=== PATIENT | male | born 1950 | race Caucasian/White ===

== ENCOUNTER 2023-11-30 12:03 | Emergency (ER) | payer OTHER, SELFPAY ==
[2023-11-30 12:13] VITALS: BP 145/79
[2023-11-30 13:08] VITALS: BP 142/92
--- NOTE | 2023-11-30 13:13 | ED.GENMED ---
History of Present Illness
General
Chief Complaint: Breathing Problem
Time Seen by Provider: 11/30/23 12:56
Travel History
Have you had any contact with someone who has COVID-19?: No
Do you have any symptoms of coronavirus? Fever > 100 degrees, chills, cough, shortness of breath, sore throat, loss of taste or smell, muscle aches, or headache?: No
History of Present Illness
History of Present Illness:
73-year-old male presents emergency department for evaluation of gradually worsening dyspnea on exertion over the past several months. He states symptoms been ongoing for at least 6 months but in the past 3 weeks have been worsening. He denies any
associated exertional chest pain. He has had a relatively recently complicated course with multiple revisions of a right knee replacement due to a periprosthetic fracture, currently going through rehab. Denies any leg swelling or shortness of
breath at rest. No orthopnea. No weight gain. 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
Review of Systems
Review of Systems
Allergies reviewed?: Yes
All Other Systems: ROS reviewed and negative except as documented in HPI and ROS
Phy Exam
Physical Exam
Physical Exam:
GEN: Well appearing, NAD, WDWN
Eyes: PERRLA, EOMs intact, no scleral icterus
HENT: NCAT, oral mucosa moist, no JVD
Lungs: CTAB, no wheezes, rales, rhonchi, normal chest wall excursion
Cardiac: RRR, no M/R/G, no peripheral edema. Radial pulses 2+ bilat
Abdomen: S, NT, ND, NABS, no masses or hepatosplenomegaly
Neuro: AO x 3
MSK: No gross deformity or ecchymosis. No edema. No digital clubbing
Skin: No rashes, petechiae. Normal color, no pallor or jaundice.
Psych: Calm, cooperative, proper hygiene
Scores
Heart Failure Risk
Heart Failure Risk Score: Not Applicable
Course
Orders/Labs/Results
Orders:
Orders
11/30/23 12:18
Electrocardiogram (*1) Urgent
Reason for Study: Shortness of Breath
EKG- Treatment ONCE
11/30/23 13:29
Complete Blood Count/With Diff Urgent
Comprehensive Metabolic Panel Urgent
D-Dimer Urgent
NT-proBNP Urgent
Troponin I Urgent
11/30/23 14:13
CT Chest Pe Study Urgent
Comment:
Reason For Exam: HARDEN, elevated D Dimer
Abnormal Lab Results
11/30/23
13:29
RBC 4.13 L 10^6/uL
(4.70-6.10)
Hct 38.9 L %
(39.0-52.0)
MCV 94.2 H fL
(80.0-94.0)
MCH 31.5 H pg
(27.0-31.0)
MPV 10.9 H fL
(7.4-10.4)
Abs Immat Gran (auto) 0.1 H 10^3/uL
(0-0.05)
Absolute Lymphs (auto) 1.0 L 10^3/uL
(1.2-3.4)
Absolute Monos (auto) 0.7 H 10^3/uL
(0.1-0.6)
Immature Gran % 1.1 H %
(0-0.5)
Lymphocytes % 12.2 L %
(20.5-51.1)
D-Dimer 1.64 H ug/mlFEU
(0.00-0.50)
BUN 22 H mg/dl
(9-20)
Glucose 113 H mg/dl
(70-99)
Alkaline Phosphatase 151 H U/L
(38-126)
11/30/23 13:29
11/30/23 13:29
Vital Signs
Initial and Last Documented VS:
Initial Vital Signs
Temp Pulse Resp BP Pulse Ox
98.4 F 103 18 145/79 95
11/30/23 12:13 11/30/23 12:13 11/30/23 12:13 11/30/23 12:13 11/30/23 12:13
Last Documented Vital Signs
Temp Pulse Resp BP Pulse Ox
98.4 F 86 23 140/67 94
11/30/23 12:13 11/30/23 14:30 11/30/23 14:30 11/30/23 14:00 11/30/23 14:30
MDM/Problems Addressed
MDM/Problems Addressed:
Given the patient's tachycardia, clear lungs, and lack of lab abnormalities to explain his dyspnea on exertion we opted to obtain a CT scan of the chest to rule out PE. Fortunately there is no evidence for pulmonary embolism. Some vague evidence
of bilateral lower lobe pneumonitis, patient does not have a clinical presentation consistent with acute pneumonia warranting antibiotics thus will discharge to outpatient PCP and pulmonology follow-up
Comment
Comment:
EKG independently interpreted by me shows a sinus tachycardia rate of [address] changes concerning for ischemia
*Critical Care Note
Total Time (30-74mins, 75-104mins- exclusive of procedures): Not Applicable
ED Attending Note
-
Portions of this chart may have been created with voice recognition software.� Occasional wrong word or��sound alike� substitutions may have occurred due to the inherent limitations of voice recognition software.
Discharge Plan
Departure
Patient Disposition: Home (Routine Discharge)
Date of Disposition: 11/30/23
Time of Disposition: 15:58
Patient with high blood pressure during this ER visit?: No
Discharge Problem:
Dyspnea on exertion, Pneumonitis
Instructions: Shortness of Breath (Dyspnea) (DC)
Referrals:
Maria Alejandra Balderas MD [Active] -
Jefferson Malave MD [Family Provider] -
Interventions
Interventions:
*Risk Screen - Suicide Last Done: 11/30/23 12:13
*General Assessment Last Done: 11/30/23 12:13
*Neglect/Abuse Screening Last Done: 11/30/23 12:13
ED- Fall Risk Assessment Last Done: 11/30/23 16:54
*ED COVID-19 Vaccine History Last Done: 11/30/23 12:13
*Nursing Disposition Last Done: 11/30/23 16:54
ED- Cardiac Assessment Last Done: 11/30/23 14:00
ED- Pulmonary Assessment Last Done: 11/30/23 14:00
Discharge Date and Time
Discharge Date/Time: 11/30/23 16:30
[2023-11-30 13:30] VITALS: BP 144/65
[2023-11-30 13:44] LABS: % Basophils 0.9 % (0-2); % Eosinophils 2.5 % (0-6); % Immature Granulocytes 1.1 % (0-0.5); % Lymphocytes 12.2 % (20.5-51.1); % Monocytes 8.8 % (1.7-9.3); % Neutrophils 74.5 % (42.2-75.2); Absolute Basophils 0.1 10^3/uL (0-0.2); Absolute Eosinophils 0.2 10^3/uL (0-0.7); Absolute Immature Granulocytes 0.1 10^3/uL (0-0.05); Absolute Monocytes 0.7 10^3/uL (0.1-0.6); Absolute Neutrophils 5.9 10^3/uL (1.4-6.5); Hematocrit 38.9 % (39.0-52.0); Mean Corp Hgb Conc. 33.4 g/dL (33.0-37.0); Mean Corpuscular Hgb 31.5 pg (27.0-31.0); Mean Corpuscular Volume 94.2 fL (80.0-94.0); Mean Platelet Volume 10.9 fL (7.4-10.4); Nucleated Red Blood Cells % 0 % (-); Platelet Count 169 10^3/uL (130-400); Red Blood Cell Count 4.13 10^6/uL (4.70-6.10); Red Cell Dist. Width 13.7 % (11.5-14.5); White Blood Cell Count 7.9 10^3/uL (4.8-10.8)
[2023-11-30 13:55] LABS: D-Dimer 1.64 ug/mlFEU (0.00-0.50)
[2023-11-30 13:57] LABS: ALT (SGPT) 25 U/L (0-50); AST (SGOT) 26 U/L (17-59); Albumin 4.1 g/dl (3.5-5.0); Alkaline Phosphatase 151 U/L (38-126); Blood Urea Nitrogen 22 mg/dl (9-20); Calcium 9.3 mg/dl (8.4-10.2); Carbon Dioxide 25 mmol/L (22-30); Chloride 104 mmol/L (98-107); Glucose 113 mg/dl (70-99); Potassium 4.1 mmol/L (3.5-5.1); Sodium 139 mmol/L (135-145); Total Bilirubin 0.5 mg/dl (0.2-1.3); Total Protein 7.2 g/dl (6.3-8.2); eGFR 57.29
[2023-11-30 14:00] VITALS: BP 140/67
[2023-11-30 14:07] LABS: NT-proBNP 30.9 pg/ml; Troponin I < 0.012 ng/ml
== END 2023-11-30 16:30 | disposition home or self-care (01) ==
LOC: EMR 12:03
PROVIDERS: Physician Assistant; EMERGENCY PHYSICIAN Emergency Medicine; FAMILY PHYSICIAN Family Medicine
DX: R06.09 Other forms of dyspnea (principal); J18.9 Pneumonia, unspecified organism; Z96.651 Presence of right artificial knee joint
CPT/HCPCS: 99285; 71275; 80053; 83880; 84484; 85025; 85379; 93005; Q9967

== ENCOUNTER → 2024-02-10 12:19 | Outpatient (REF) | payer OTHER, SELFPAY | LOC: DHCBC/DCA 12:19 | PROVIDERS: ATTENDING PHYSICIAN Internal Medicine Cardiovascular Disease; FAMILY PHYSICIAN Family Medicine | DX: R06.02 Shortness of breath (principal) | CPT/HCPCS: 78452; 93017; A9500; J2785 ==

== ENCOUNTER 2024-02-15 10:38 | Day surgery (SDC) | payer OTHER, SELFPAY ==
[2024-02-15] VITALS (14 sets, daily range): BP systolic 124–158; BP diastolic 58–91; BMI 42.4
[2024-02-15] MEDS: NSS 390 ML IV (10:45)
[2024-02-15] MEDS: NSS 1000 IV (11:35)
--- NOTE | 2024-02-15 11:48 | ITS.CL.CATH ---
Rn Dialysis - Catheterization
Cardiac Catheterization
Procedure Report:
CARDIAC CATHETERIZATION REPORT
Date of Procedure: 02/15/2024
Referring: King Whitney M.D.
INDICATION: Shortness of breath/dyspnea on exertion, abnormal stress test.
PROCEDURE:
1. Left heart catheterization.
2. Coronary angiography.
ACCESS:
6 Chinese right radial artery.
CATHETERS:
1. 5 Chinese JR4.
2. 5 Chinese JL 3.5.
HEMODYNAMIC DATA
Weight (kg): 129.7
AO (s/d/x, mmHg): 139/78/106
LV (s/x mmHg): 139/12
LEFT VENTRICULOGRAPHY: Not performed.
CORONARY ANGIOGRAPHY
Dominance: Right.
Left Main: Normal size, trifurcating vessel. There is no coronary artery disease.
LAD: Normal size vessel giving rise to 1 significant diagonal. There are minor luminal irregularities.
Ramus: Small vessel, supplying the basal anterolateral wall. There is no coronary artery disease.
Circumflex: Normal size, nondominant vessel giving rise to a single large obtuse marginal. The OM subsequently divides into 3 smaller daughter branches. There is no coronary artery disease.
RCA: Large size, dominant vessel. There is a 20% lesion in the proximal vessel. There is a long, smooth 30% lesion in the mid/distal vessel at the crux.
INTERVENTION(S)
None.
Closure Device: Vascular band.
Radiation (mGy): 387.81
DAP (cm2.Gy): 33.4980
Fluoroscopy time (minutes): 1.7
Sedation time (minutes): 18
CONCLUSIONS
1. Right dominant circulation with minor luminal irregularities in the LAD, a 20% lesion in the proximal RCA and a long, smooth, 30% lesion in the mid/distal RCA at the crux.
2. Normal filling pressures (LVEDP = 12 mmHg at 129.7 kg).
RECOMMENDATIONS:
1. Expectant management after cardiac catheterization via right radial approach.
2. Limited weight bearing on the right wrist for one week.
3. No obvious ischemic source for dyspnea on exertion.
4. Stable for outpatient follow-up.
Copy to: King Whitney M.D., Jefferson Malave M.D.
Jerod Arroyo DO, FACC, FACP
--- NOTE | 2024-02-15 12:06 | PTCARENOTE ---
Dr Arroyo at pt bedside speaking to pt and pt's .
== END 2024-02-15 14:30 | disposition home or self-care (01) ==
LOC: CATH 10:38
PROVIDERS: ATTENDING PHYSICIAN Internal Medicine Cardiovascular Disease; FAMILY PHYSICIAN Family Medicine
DX: I25.10 Atherosclerotic heart disease of native coronary artery without angina pectoris (principal); R06.02 Shortness of breath; R06.09 Other forms of dyspnea; R94.39 Abnormal result of other cardiovascular function study; Z79.82 Long term (current) use of aspirin
CPT/HCPCS: 93458; C1894; Q9967

== ENCOUNTER 2024-04-27 22:42 | Inpatient (IN) | payer OTHER, SELFPAY ==
[2024-04-27] VITALS (9 sets, daily range): BP systolic 173–197; BP diastolic 76–95; BMI 39.8; BMI 38.1
[2024-04-27 16:26] LABS: % Basophils 1.2 % (0-2); % Eosinophils 3.3 % (0-6); % Immature Granulocytes 0.6 % (0-0.5); % Lymphocytes 12.7 % (20.5-51.1); % Monocytes 7.2 % (1.7-9.3); Absolute Basophils 0.1 10^3/uL (0-0.2); Absolute Eosinophils 0.3 10^3/uL (0-0.7); Absolute Immature Granulocytes 0.1 10^3/uL (0-0.05); Absolute Lymphocytes 1.2 10^3/uL (1.2-3.4); Absolute Monocytes 0.7 10^3/uL (0.1-0.6); Absolute Neutrophils 7.1 10^3/uL (1.4-6.5); Hematocrit 34.7 % (39.0-52.0); Hemoglobin 11.6 g/dL (13.0-18.0); Mean Corp Hgb Conc. 33.4 g/dL (33.0-37.0); Mean Corpuscular Hgb 31.9 pg (27.0-31.0); Mean Corpuscular Volume 95.3 fL (80.0-94.0); Mean Platelet Volume 11.9 fL (7.4-10.4); Nucleated Red Blood Cells % 0 % (-); Platelet Count 161 10^3/uL (130-400); Red Blood Cell Count 3.64 10^6/uL (4.70-6.10); Red Cell Dist. Width 13.9 % (11.5-14.5); White Blood Cell Count 9.5 10^3/uL (4.8-10.8)
[2024-04-27 16:38] LABS: Lactic Acid 1.1 mmol/L (0.7-2.0)
--- NOTE | 2024-04-27 17:53 | ED.MUSCINJ ---
HPI-Injury
General
Chief Complaint: Extremity Pain (non-traumatic)
Source: patient
Exam Limitations: none
Time Seen by Provider: 04/27/24 15:49
Nursing documentation reviewed up to this point in time: agreed with
History of Present Illness-Injury
Is this injury a work related problem?: No
Is pt an associate of [facility]/[place]?: No
Initial Injury comments:
Patient to ED with complaint of swelling to his right lower leg. He had been seen by podiatry last month, had nails cut. Developed infection to right distal great toe. PCP placed him on clindamycin without improvement. contacted another
awake overnight monitor and he was reassessed. Told infection was still presnet. He was placed on Keflex 500mg bid, last dose today. and patient report ongoing swelling to RLE. Denies fever/chills, recent illness.
Past History
Past History
ED Past Medical History: HTN and Psychiatric
Review of Systems
Review of Systems
Allergies reviewed?: Yes
All Other Systems: ROS reviewed and negative except as documented in HPI and ROS
Constitutional: Reports no symptoms
EENT: Reports no symptoms
Respiratory: Reports no symptoms
Cardiac: Reports no symptoms
ABD/GI: Reports no symptoms
: Reports frequency
Musculoskeletal: Reports no symptoms
Skin: Reports other (swelling to RLE)
Neurological: Reports no symptoms
Psychiatric: Reports no symptoms
Musculoskeletal Injury Exam
Musculoskeletal Injury Exam
Right Lower Leg:
Pain with Movement?: None
Tender to palpation?: None
Soft tissue swelling?: Mild
External deformity and angulation?: None
Joint effusion?: None
Contusion?: None
Strain- Sprain- Tear (Connective tissue injury)?: None
Crepitus with movement?: No
Malalignment/deformity?: No
Range of motion: Full
Distal skin color and temperature: normal-warm & good color
Capillary Refill: normal
Normal distal neurovascular exam?: Yes
Peripheral Pulses: posterior tibial (right): 3+ and dorsalis pedis (right): 3+
Phy Exam
General Physical Exam
General Presentation: well appearing and no apparent distress
General age: appears stated age
General Skin: warm and dry
General Habitus: normal
General Mental: alert
Cardiovascular Exam
Cardiovascular Exam: regular rate/rhythm
Pulmonary Exam
Pulmonary Exam: lungs clear and no respiratory distress
Gastrointestinal Exam
Gastrointestinal Exam: normal bowel sounds, non tender and soft
Musculoskeletal Exam
Musculoskeletal Exam: neuro vasc intact
Skin Exam
Skin Exam: normal color, warm/dry and no rash
Psychiatric Exam
Psychiatric Exam: normal mood/affect
Injury Course
Orders/Labs/Results
Orders:
Orders
04/27/24 Breakfast
Cholesterol Lowering
At Your Request: Full Participation
Does patient need a safe tray?: No
Cholesterol Lowering: Sodium, 2 Gram
04/27/24 16:00
Foot, Right 3 View [CR Foot - Right Min 3 Views] Urgent
Comment:
Reason For Exam: pain
US Periph Venous LOWER Ext RT Urgent
Comment:
Reason For Exam: pain and swelling
04/27/24 16:18
Complete Blood Count/With Diff Urgent
Lactic Acid Urgent
04/27/24 18:02
Comprehensive Metabolic Panel Urgent
04/27/24 18:39
Bladder Scan- Treatment ONCE
Renal Only US [US Renal Only W/O Bladder] Urgent
Comment:
Reason For Exam: elevated creatinine
04/27/24 20:04
Lisinopril [Zestril] 20 mg PO NOW STA
04/27/24 20:28
Urinalysis Reflex To Culture Urgent
Date Specimen was Collected: 04/27/24
Time Specimen was Collected: 20:27
04/27/24 20:36
Castle Placement- Treatment ONCE
Reason for insertion: Acute Retention
04/27/24 21:00
Flush (0.9% Sodium Chloride) [Flush (Nss)] See Dose Instructions IV PER PROTOCOL
04/27/24 21:48
Admit/Transfer Patient As Directed
Co-Sign Provider:
Level of Care: Inpatient admission
Assign to:: Medical/Surgical
Physician / Group: deonte
Diagnosis: OLGA
Reason for Hospitalization: OLGA
Expected length of stay greater than two midnights?: Yes
ELOS- Estimated Length of Stay in days: 3
I certify the patient meets the requirements for IP care: Yes
PRN Pain Medication Management As Directed
May give lesser potent ordered pain med per pt: Yes
preference::
Protocol:: Medication orders for pain may be administered in a
manner that supports deferring to patient preference
when the pt is:
- Requesting an ordered lesser potent pain medication.
Least to most potent pain medications are defined
as: acetaminophen < NSAID < tramadol < opioids
(morphine, oxycodone, hydromorphone).
- Requesting a lesser dose of the same medication IF
ORDERED.
- Requesting a less intrusive route of administration
if both routes are prescribed by the provider (PO <
IV).
04/27/24 21:49
Code Status As Directed
Resuscitation Status: Full Code
04/27/24 23:43
0.9% Sodium Chloride 1000 ml [Nss] 1,000 ml IV 80 mls/hr
Acetaminophen [Tylenol] 650 mg PO Q4HPRN PRN
Acyclovir [Zovirax] 400 mg PO HS
Bisacodyl [Dulcolax] 10 mg RECTAL [id number] PRN
Bupropion(24Hr)Extended Releas [WELLBUTRIN XL (24 hour extended release)] 300 mg PO HS
Docusate W/Senna [Senokot-S] 1 tablet PO BIDPRN PRN
Doxepin [Sinequan] 75 mg PO HS
HydrALAZINE [Apresoline] 10 mg IV Q6HPRN PRN
Lorazepam [Ativan] 0.5 mg PO DAILYPRN PRN
Polyethylene Glycol Powder [Miralax] 17 grams PO DAILYPRN PRN
04/27/24 23:43
UROLOGY CONSULT Routine
Consulting Provider: Yordy Andrade Jr.
Was physician already notified: Yes
Activity As Directed
Activity Level: As Tolerated
Activity As Directed
Activity Level: Out of Bed-Early Mobility
Intake/ Output As Directed
Frequency: Per unit guidelines
Vital Signs As Directed
Frequency: Per unit guidelines
Ot Eval And Treat Routine
Pt Eval And Treat Routine
Activity Level: As Tolerated
DX Deep Vein Thrombosis Video Routine
04/28/24 00:00
Doxycycline Hyclate [Vibramycin] 100 mg 0.9% Sodium Chloride 250 ml [Nss] 250 ml IV Q12H
04/28/24 08:00
Clotrimazole/Betamet Diprop [Lotrisone Cream] See Dose Instructions TOPICAL DAILY
Tamsulosin [Flomax] 0.4 mg PO BID
04/28/24 10:23
Basic Metabolic Panel IN AM
Complete Blood Count/No Diff IN AM
Ferritin IN AM
Folate IN AM
Iron IN AM
Total Iron Binding IN AM
Vitamin B12 IN AM
04/29/24 08:48
Basic Metabolic Panel IN AM
Complete Blood Count/No Diff IN AM
04/30/24 06:00
Basic Metabolic Panel IN AM
Complete Blood Count/No Diff IN AM
05/01/24 06:00
Basic Metabolic Panel IN AM
Complete Blood Count/No Diff IN AM
05/02/24 06:00
Basic Metabolic Panel IN AM
Complete Blood Count/No Diff IN AM
Abnormal Lab Results
04/27/24 04/27/24
16:18 18:02
RBC 3.64 L 10^6/uL
(4.70-6.10)
Hgb 11.6 L g/dL
(13.0-18.0)
Hct 34.7 L %
(39.0-52.0)
MCV 95.3 H fL
(80.0-94.0)
MCH 31.9 H pg
(27.0-31.0)
MPV 11.9 H fL
(7.4-10.4)
Abs Immat Gran (auto) 0.1 H 10^3/uL
(0-0.05)
Absolute Neuts (auto) 7.1 H 10^3/uL
(1.4-6.5)
Absolute Monos (auto) 0.7 H 10^3/uL
(0.1-0.6)
Immature Gran % 0.6 H %
(0-0.5)
Lymphocytes % 12.7 L %
(20.5-51.1)
Chloride 115 H mmol/L
(98-107)
Carbon Dioxide 20 L mmol/L
(22-30)
BUN 51 H mg/dl
(9-20)
Creatinine 4.7 H* mg/dL
(0.7-1.3)
04/27/24 16:18
04/27/24 18:02
*Radiology
Radiology exam reviewed: radiology read reviewed
*Pulse Oximetry
Patient hypoxic: no
*Critical Care Note
Total Time (30-74mins, 75-104mins- exclusive of procedures): Not Applicable
Update Note
Update Note:
Labs reviewed. Creat 4.7. No history of renal disease. Bladder scan and renal US pending
Renal US: Severe bilateral pelvicalyceal dilation. UA without evidence of UTI. Bladder scan post void with >480cc urine. Castle catheter placed. Will admit to hospitalist service.
ED Attending Note
-
Portions of this chart may have been created with voice recognition software.� Occasional wrong word or��sound alike� substitutions may have occurred due to the inherent limitations of voice recognition software.
Discharge Plan
Departure
Patient Disposition: Admit
Date of Disposition: 04/27/24
Time of Disposition: 18:40
Presentation/result/management discussed w/ accepting MD/DO: Hospitalist
Patient with high blood pressure during this ER visit?: No
Condition: Fair
Discharge Problem:
OLGA (acute kidney injury), Acute urinary retention
Interventions
Interventions:
*Risk Screen - Suicide Last Done: 04/28/24 00:02
*General Assessment Last Done: 04/27/24 16:06
*Neglect/Abuse Screening Last Done: 04/27/24 15:00
ED- Fall Risk Assessment Last Done: 04/27/24 16:06
*ED COVID-19 Vaccine History Last Done: 04/28/24 00:02
*Nursing Disposition Last Done: 04/27/24 23:28
ED-Skin Assessment Last Done: 04/27/24 16:06
ED-Peripheral Vascular Assessment Last Done: 04/27/24 16:06
ED-Musculoskeletal Assessment Last Done: 04/27/24 16:06
Discharge Date and Time
Discharge Date/Time: 04/27/24 23:29
[2024-04-27 18:30] LABS: ALT (SGPT) 25 U/L (0-50); AST (SGOT) 25 U/L (17-59); Albumin 4.2 g/dl (3.5-5.0); Alkaline Phosphatase 112 U/L (38-126); Blood Urea Nitrogen 51 mg/dl (9-20); Calcium 9.2 mg/dl (8.4-10.2); Carbon Dioxide 20 mmol/L (22-30); Chloride 115 mmol/L (98-107); Estimated Creatinine Clearance 18 ml/min; Glucose 92 mg/dl (70-99); Potassium 4.6 mmol/L (3.5-5.1); Sodium 144 mmol/L (135-145); Total Bilirubin 0.7 mg/dl (0.2-1.3); Total Protein 6.9 g/dl (6.3-8.2); eGFR 12.25
--- NOTE | 2024-04-27 18:32 | EDRN ---
Creatinine of 4.7 reported to Christie Rajput CONSOLE MANAGER w/ discharge canceled and pt to be admitted.
[2024-04-27] MEDS: ZESTRIL 20 MG PO (20:14)
[2024-04-27 20:43] LABS: Urine Albumin Negative (Neg - Trace); Urine Bilirubin Negative (Negative); Urine Character Clear (Clear); Urine Color Yellow; Urine Glucose Negative (Negative); Urine Ketone Negative (Negative); Urine Leukocyte Negative (Negative); Urine Nitrite Negative (Negative); Urine Occult Blood Negative (Negative); Urine Urobilinogen Negative (Neg - 1+)
--- NOTE | 2024-04-27 21:17 | HPS.HSE ---
Addendum entered and electronically signed by Al Tate DO 04/27/24 23:17:
Patient seen and examined independently. Agree with findings and plan as set forth by BILLY Busby.
Patient is a 73y M with PMH significant for hypertension, BPH and obesity / non-ambulatory status who presents to [facility] complaining of swelling and redness of the R foot. Patient had initial podiatry eval / nail trimming done about 3 weeks ago.
Following this he developed some localized bleeding, swelling and redness. he has since been treated with two courses of antibiotics (clindamycin and cephalexin) and was seen by another [employer] Consultant (Dr. Santiago) for nail debridement / trim. He has
had continued swelling and redness. He denies any pain. There has been less bloody drainage. He presented to the ED for evaluation.
Patient incidentally notes that he has been urinating very frequently in very small amounts for the past 2-3 days.
Ass:
Urinary Retention
BPH with LUTS
OLGA secondary to the above
RLE Swelling / Redness
MAcrocytic Anemia
Benign Hypertension
Morbid Obesity
Ambulatory Dysfunction
Depression / Anxiety
Plan:
Admit for further evaluation and treatment.
Maintain Castle - placed in ED for > 1000cc out.
Hold antiplatelets acutely.
Increase tamsulosin to double-dose.
Urology evaluation.
Hold ECHO inhibitor acutely.
Doxycycline for now for RLE redness.
Will ask Podiatry to evaluate.
US is negative for DVT.
Continue other home medications.
Original Note:
Family Physician
-
Family Physician: Jefferson Malave
Chief Complaint
-
right LE edema and redness
History of Present Illness
73 year old with PMH for HTN, BPH,depression, anxiety, MANASA presented to us with right LE redness and swelling since the nail trimming. he had nail trimming done 3 weeks ago. after few days noted to have bloody drainage associated with some
discomfort, swelling and redness.he was prescribed clindamycin, which he took for 10 days with no relief in his symptoms. he was started on Keflex (total of nine days) with so improvement but still with redness and swelling which prompted him to
come to the ER. denied fever, chills, FALL, dizzy or syncopal episode. denied chest pain, sob. denied abdominal pain,n,v,d. stated urinary frequency with little urine output.
Bladder scan >480, Castle placed with clear yellow urine. he was noted in OLGA. admitting for further management.
Medical History
Past Medical History
Past Medical History: Reports Other
Additional Past Medical History:
HTN
sleep apnea
depression/anxiety
Past Surgical History: Reports Other
Additional Past Surgical History:
ACL reconstruction
hip replacement
back surgery
right knee replacement
left knee replacement
Social History
Tobacco: Non-smoker
Alcohol: None
Drug: None
Personal:
Living: With Family
Employment: Retired
Family History
Family History: Not pertinent
Allergies / Home Medications
Allergies reflects when Allergies were last updated in [facility]..
Home Medications with original date entered in [facility].
Allergy/Medication List:
Allergies
Allergy/AdvReac Type Severity Reaction Status Date / Time
Latex, Natural Rubber Allergy redness Verified 04/27/24 15:03
Neoprene Allergy redness Uncoded 04/27/24 15:03
and
blisters
Home Medications
acyclovir 400 mg tablet 400 mg PO HS 02/15/24
aspirin 81 mg tablet,delayed release 81 mg PO DAILY 02/15/24
bupropion HCl 300 mg 24 hr tablet, extended release 300 mg PO HS 02/15/24
doxepin 75 mg capsule 75 mg PO HS 02/15/24
lisinopril 20 mg tablet 20 mg PO BID 02/15/24
lorazepam 0.5 mg tablet 0.5 mg PO DAILYPRN PRN anxiety 02/15/24
tamsulosin 0.4 mg capsule 0.4 mg PO QPM 02/15/24
bisacodyl 10 mg rectal suppository (Dulcolax (bisacodyl)) 10 mg DC DAILYPRN PRN constipation 04/27/24
cephalexin 500 mg capsule 500 mg PO BID 04/27/24
clotrimazole-betamethasone 1 %-0.05 % topical cream 1 applic topical DAILY 04/27/24
Review of Systems
-
Constitutional: Reports No Symptoms
EENT: Reports No Symptoms
Respiratory: Reports No Symptoms
Cardiac: Reports No Symptoms
Abdomen/GI: Reports No Symptoms
: Reports No Symptoms
Musculoskeletal: Reports No Symptoms
Skin: Reports Other (b/l LE swollen, right greater than left)
Neurological: Reports No Symptoms
Endocrine: Reports No Symptoms
Hematologic/Lymphatic: Reports No Symptoms
Psych: Reports No Symptoms
Physical Exam
Vital Signs
Vital Signs
Temp Pulse Resp BP Pulse Ox
98.5 F 88 18 173/76 97
04/27/24 15:00 04/27/24 20:14 04/27/24 20:11 04/27/24 20:14 04/27/24 20:11
Physical Exam
General: Well Developed, Well Nourished and No Apparent Distress
HEENT: NormoCephalic, Moist mucous membranes and Atraumatic
Respiratory: Clear
Cardiac: S1/S2 and Regular Rhythm; No Murmur or Rub
GI: Soft, Non Tender, Non Distended and Normal Bowel Sounds; No Organomegaly
Rectal: Deferred by Provider
Musculoskeletal: No Clubbing, No Cyanosis and Other (b/l LE edema. right greater than left, right LE red)
Skin: No Rash
Neuro: AO x 3 and Nonfocal/grossly intact
Psych: Calm
Laboratory Results
-
04/27/24 16:18
04/27/24 18:02
Laboratory Results
Lactic Acid 1.1 mmol/L (0.7-2.0) 04/27/24 16:18
Total Bilirubin 0.7 mg/dl (0.2-1.3) 04/27/24 18:02
AST 25 U/L (17-59) 04/27/24 18:02
ALT 25 U/L (0-50) 04/27/24 18:02
Alkaline Phosphatase 112 U/L (38-126) 04/27/24 18:02
Data Reviewed
-
Diagnostic Radiology: Report Reviewed by me
Ultrasound: Report Reviewed by me
Lab Data: Labs Reviewed by me
Impression/Plan
-
# Acute kidney injury likely related to urinary retention
-Creatinine 4.7
-Ultrasound with impression of s bilateral pelvicalyceal dilation.
-Urinalysis negative
-Postvoid bladder scan greater than 480
-Castle is in place
-0.9ns continued
-Trend BMP
# Macrocytic anemia
-Hemoglobin 11.6
-Will obtain iron panel with B12 folate
-Continue to trend
#right Le redness and swelling since the nail trimming likely cellulitis
-was on Clinda and Keflex as outpatient
-patient is afebrile
-Tylenol prn for fever
-initiated on doxy
#hxt of genital herpes
-on acyclovir as prophylactically
#depression/anxiety
-bupropion,doxepin,lorazepam continued
#essential HTN
-hold lisinopril due to OLGA
-hydralazine prn for SBp>150
#BPH
-Flomax continued
#DVT prophylaxis
-scd
#CODE status
-full code
--- NOTE | 2024-04-27 23:40 | PTCARENOTE ---
Pt arrived from ED via stretcher and pulled over to bed. Pt is AAOx3, VSS, and w/o complaints of pain. Pt andrade is intact. Pt is resting comfortably w/ call mckeon within reach.
[2024-04-27] MEDS: NSS 1000 IV (23:55)
[2024-04-28] VITALS (7 sets, daily range): BP systolic 146–184; BP diastolic 72–90; PULSE 105; O2SAT 97
[2024-04-28] MEDS: WELLBUTRIN XL (24 hour extended release) 300 MG PO ×2 (00:22→22:47)
[2024-04-28] MEDS: VIBRAMYCIN 260 MG IV ×3 (00:22→23:11)
[2024-04-28] MEDS: SINEQUAN 75 MG PO ×2 (01:16→22:47)
[2024-04-28] MEDS: ZOVIRAX PO (01:16)
--- NOTE | 2024-04-28 01:17 | W.PN.UPDATE ---
Update Note
Progress Note Update
Will place Acyclovir on hold at present as creatinine 4.7 with new OLGA, discussed it with pharmacist.
[2024-04-28] MEDS: APRESOLINE 10 MG IV ×3 (01:22→18:04)
--- NOTE | 2024-04-28 06:39 | CON.MD ---
Consultation - Medical
-
see dictated note
obese male- remote hx of genital hsv
> 1 year hx of urinary frequency- worse recently- no prior gu eval- primary had started flomax about 12 months ago
admitted with foot infx
found to be in urinary retention with elevated cr and hydro on renal u/s
andrade placed- 1 liter drained- urine arora colored this am
plan
continue andrade- will likely need to maintain at discharge given degree of retention and hydro
on flomax
check ct
hold any anticoagulants for another 24hrs until hematuria resolves
[2024-04-28] MEDS: FLOMAX 0.4 MG PO ×2 (08:25→20:34)
[2024-04-28] MEDS: LOTRISONE CREAM 1 APPLIC TOPICAL (08:25)
[2024-04-28 11:47] LABS: Hematocrit 33.2 % (39.0-52.0); Hemoglobin 11.1 g/dL (13.0-18.0); Mean Corp Hgb Conc. 33.4 g/dL (33.0-37.0); Mean Corpuscular Hgb 31.8 pg (27.0-31.0); Mean Corpuscular Volume 95.1 fL (80.0-94.0); Platelet Count 162 10^3/uL (130-400); Red Blood Cell Count 3.49 10^6/uL (4.70-6.10); White Blood Cell Count 8.9 10^3/uL (4.8-10.8)
[2024-04-28 12:16] LABS: Blood Urea Nitrogen 47 mg/dl (9-20); Calcium 9.3 mg/dl (8.4-10.2); Carbon Dioxide 18 mmol/L (22-30); Chloride 116 mmol/L (98-107); Estimated Creatinine Clearance 20 ml/min; Glucose 154 mg/dl (70-99); Iron 86 ug/dl (49-181); Sodium 145 mmol/L (135-145); eGFR 14.44
[2024-04-28] MEDS: NSS 1000 IV (12:35)
[2024-04-28 12:37] LABS: Percent Saturation 36 % (20-50); Total Iron Binding Capacity 235 ug/dl (261-462)
--- NOTE | 2024-04-28 12:43 | W.PN.HOSP.TC ---
Today's Communication/Plan
-
follow creat--may need renal consult
await podiatry consult
Assessment / Plan
Assessment / Plan
pt is a 73 year old male
Acute kidney injury likely related to urinary retention--Creatinine 4.7--Ultrasound with impression of s bilateral pelvicalyceal dilation--andrade placed--creat down to 4.1--follow BMP
right Le redness and swelling since the nail trimming likely cellulitis--was on Clinda and Keflex as outpatient--changed to doxy--await podiatry (consulted by admitting MD)
Macrocytic anemia--Hemoglobin 11.6--not iron deficient--B12, folate pending
hxt of genital herpes--on acyclovir as prophylactically
depression/anxiety--bupropion,doxepin,lorazepam continued
essential HTN--hold lisinopril due to OLGA--hydralazine prn for SBP >150
BPH--Flomax continued--apprec urology
bilateral LE edema--right > left--no DVT by US in right leg
DVT prophylaxis--scd
CODE status--full code
Anticipated Discharge: > 48 hours
Subjective/Interval History
-
Date of Service: April 28, 2024
pt without c/o
Objective Data
-
Labs:
Laboratory Results
04/28/24
10:23
WBC 8.9
Hgb 11.1 L
Hct 33.2 L
Plt Count 162
Sodium 145
Potassium 4.0
Chloride 116 H
Carbon Dioxide 18 L
BUN 47 H
Creatinine 4.1 H*
Glucose 154 H
Calcium 9.3
Vital Signs:
max temp for 24 hours
04/27/24
15:00
Temp 98.5 F
Vital Signs
Temp Pulse Resp BP Pulse Ox
98.1 F 96 20 172/89 93
04/28/24 07:45 04/28/24 09:27 04/28/24 07:45 04/28/24 09:27 04/28/24 07:45
I&O
04/27/24 04/28/24 04/29/24
06:59 06:59 06:59
Output Total 550 / 550 1750 / 1750
Balance -550 / -550 -1750 / -1750
Review of Systems
-
All other systems: Reviewed and negative
Physical Exam
-
General: Well Developed, Well Nourished and No Apparent Distress
HEENT: Normocephalic and Atraumatic; Negative Oxygen
Respiratory: Clear to Auscultation; Negative Wheezes or Rhonchi
Cardiac: Regular Rhythm and S1/S2; Negative Murmur
GI: Soft, Nontender, Nondistended and Normal Bowel Sounds
Genito-urinary: Clear Urine and Andrade
Musculoskeletal: No Clubbing and No Cyanosis; Negative No Edema (right > left)
Neuro: Awake and Tremors
Psych: Calm
--- NOTE | 2024-04-28 12:44 | W.SUR.POST ---
Surgical Immediate Post Op
Note
Pre Op Diagnosis: Uterovaginal prolapse and rectocele
Post Op Diagnosis: Uterovaginal prolapse and rectocele
Procedure Performed: Robotic total hysterectomy, BSO, uterosacral ligament suspension, culdoplasty, posterior colporrhaphy, right stent removal
Primary Surgeon: Pee Barcenas MD
Secondary Surgeons: see Dr. Girard's operative note
Anesthesia: General Anesthesia
Estimated Blood Loss: 150cc
Drains/Shunts: Left ureteral stent in place with Castle catheter
Specimens/Cultures: uterus, bilateral tubes and ovaries
Complications: none
Operative Findings: Advanced stage pelvic organ prolapse
--- NOTE | 2024-04-28 13:04 | W.PN.SURGUPD ---
Surgical Update
Surgical Update
Patient seen and evaluated at bedside. No open wounds or signs of infection. No podiatric needs at this time. Please call with questions or concerns.
[2024-04-28 13:14] LABS: Folate 11.4 ng/ml (2.76-20); Vitamin B12 165 pg/ml (239-931)
--- NOTE | 2024-04-28 13:57 | CM ---
Patient seen at bedside with physician. Patient states that he lives with his in a ranch style home. Patient states that he has an aide 3x weekly and PTx2 a week. Patient has [facility]. Patient PCP is a physician Dr. Prakash and he
uses the [facility] for pharmacy needs. Patient states that he plans to go home and has been to several SNF's in the past. Patient stated that he wanted to have VN PATRICIA at that time. CM will continue to follow for discharge planning needs.
Plan; home with VN vs SNF
[2024-04-29] MEDS: APRESOLINE 10 MG IV (00:24)
[2024-04-29 03:25] VITALS: BP 148/69
[2024-04-29] MEDS: NSS 1000 IV (04:02)
[2024-04-29] MEDS: LOTRISONE CREAM 1 APPLIC TOPICAL (07:38)
[2024-04-29] MEDS: FLOMAX 0.4 MG PO ×2 (07:39→19:29)
[2024-04-29] MEDS: VITAMIN B-12 1000 MCG PO (07:39)
[2024-04-29 08:08] VITALS: BP 161/83
--- NOTE | 2024-04-29 08:33 | W.PN.URO.CBU ---
Today's Communication / Plan
-
continue andrade
add proscar
check psa
track kidney function
Assessment / Plan
-
urinary retention with resultant hydro and STEPHANIE
lack of sig post ob diuresis and rapid return of renal function combined with ct findings indicate that has been along standing process with ? recovery
will check psa (although may be skewed given cath/etc)
add proscar
vn consult- pt will need andrade at this point
outpt f/u- will eventually need cysto and UDS to determine if there is any recoverable bladder function
Diagnosis
-
Date of Service: April 29, 2024
-
Patient Diagnosis:
urinary retention
hydro
STEPHANIE
Subjective
-
pt sitting in bed
no complaints- tolerating cath
urine output not as vigorous as I would suspect with post op diuresis
ct scan shows severe bilateral hydro down to bladder- mild bph- no evid of malig or other source of obstruction
pt says he has never had a psa
Objective
-
Vital Signs
Temp Pulse Resp BP Pulse Ox
98.3 F 94 18 161/83 94
04/29/24 08:08 04/29/24 08:08 04/29/24 08:08 04/29/24 08:08 04/29/24 08:08
Intake and Output
04/28/24 04/29/24 04/30/24
06:59 06:59 06:59
Intake Total 2550 / 2550
Output Total 550 / 550 7275 / 7275
Balance -550 / -550 -4725 / -4725
Intake:
Oral fluids 1320 / 1320
IV fluids (Total) 960 / 960
IV piggybacks 270 / 270
Output:
Urine, Andrade 550 / 550 4600 / 4600
Urine, Voided 2675 / 2675
Physical Exam
-
General - no acute distress
Abdomen - soft, non-tender
Genitalia - andrade in place
[2024-04-29 09:25] LABS: Hematocrit 33.8 % (39.0-52.0); Hemoglobin 11.4 g/dL (13.0-18.0); Mean Corp Hgb Conc. 33.7 g/dL (33.0-37.0); Mean Corpuscular Volume 94.9 fL (80.0-94.0); Mean Platelet Volume 11.8 fL (7.4-10.4); Platelet Count 173 10^3/uL (130-400); Red Blood Cell Count 3.56 10^6/uL (4.70-6.10); Red Cell Dist. Width 14.2 % (11.5-14.5); White Blood Cell Count 10.5 10^3/uL (4.8-10.8)
[2024-04-29 09:54] LABS: Blood Urea Nitrogen 35 mg/dl (9-20); Calcium 9.2 mg/dl (8.4-10.2); Carbon Dioxide 18 mmol/L (22-30); Chloride 115 mmol/L (98-107); Estimated Creatinine Clearance 24 ml/min; Glucose 102 mg/dl (70-99); Potassium 4.3 mmol/L (3.5-5.1); Sodium 145 mmol/L (135-145); eGFR 18.07
[2024-04-29] MEDS: VIBRAMYCIN 260 MG IV (11:44)
--- NOTE | 2024-04-29 12:53 | W.PN.HOSP.TC ---
Today's Communication/Plan
-
cont andrade
follow BMP
Assessment / Plan
Assessment / Plan
pt is a 73 year old male
Acute kidney injury likely related to urinary retention--Creatinine 4.7 down to 3.4--will keep andrade at d/c--Ultrasound with impression of s bilateral pelvicalyceal dilation----follow BMP
right Le redness and swelling since the nail trimming likely cellulitis--was on Clinda and Keflex as outpatient--changed to doxy--apprec podiatry --NO NEED for consult
Macrocytic anemia--Hemoglobin 11.6--not iron deficient--B12 deficient--started repletion, folate WNL
hxt of genital herpes--on acyclovir as prophylactically
depression/anxiety--bupropion,doxepin,lorazepam continued
essential HTN--hold lisinopril due to OLGA--hydralazine prn for SBP >150
BPH--Flomax continued--apprec urology
bilateral LE edema--right > left--no DVT by US in right leg
DVT prophylaxis--scd
CODE status--full code
Anticipated Discharge: 24 - 48 hours
Subjective/Interval History
-
Date of Service: April 29, 2024
pt c/o right arm swelling and pain
Objective Data
-
Labs:
Laboratory Results
04/29/24
08:48
WBC 10.5
Hgb 11.4 L
Hct 33.8 L
Plt Count 173
Sodium 145
Potassium 4.3
Chloride 115 H
Carbon Dioxide 18 L
BUN 35 H
Creatinine 3.4 H
Glucose 102 H
Calcium 9.2
Vital Signs:
max temp for 24 hours
04/28/24
23:43
Temp 98.6 F
Vital Signs
Temp Pulse Resp BP Pulse Ox
98.3 F 94 18 161/83 94
04/29/24 08:08 04/29/24 08:08 04/29/24 08:08 04/29/24 08:08 04/29/24 08:08
I&O
04/28/24 04/29/24 04/30/24
06:59 06:59 06:59
Intake Total 2550 / 2550
Output Total 550 / 550 7275 / 7275 600 / 600
Balance -550 / -550 -4725 / -4725 -600 / -600
Review of Systems
-
All other systems: Reviewed and negative
Musculoskeletal: Reports Edema (right UE)
Physical Exam
-
General: Well Developed, Well Nourished and No Apparent Distress
HEENT: Normocephalic and Atraumatic
Respiratory: Clear to Auscultation; Negative Wheezes or Rhonchi
Cardiac: Regular Rhythm and S1/S2; Negative Murmur
GI: Soft, Nontender, Nondistended and Normal Bowel Sounds
Genito-urinary: Andrade
Musculoskeletal: Edema, Right Upper Extrem
Skin: Warm
Neuro: Awake
[2024-04-29 16:04] VITALS: BP 150/74
--- NOTE | 2024-04-29 16:11 | CM ---
Patient confirmed plan for discharge home with [facility], referral sent. Patient completed IMM and signed form placed on chart. Patient for possible discharge tomorrow and stated that he would have 'ladies from [place]' provide transportation
home tomorrow. CM will continue to follow for discharge planning needs.
Plan; home with ; [facility] referral sent.
[2024-04-29] MEDS: VIBRAMYCIN 100 MG PO (19:30)
[2024-04-29] MEDS: SINEQUAN 75 MG PO (22:32)
[2024-04-29] MEDS: ZOVIRAX 400 MG PO (22:32)
[2024-04-29] MEDS: WELLBUTRIN XL (24 hour extended release) 300 MG PO (22:33)
[2024-04-29 23:37] VITALS: BP 140/69
[2024-04-30 07:16] VITALS: BP 132/70
[2024-04-30 07:54] LABS: Hematocrit 32.5 % (39.0-52.0); Hemoglobin 10.8 g/dL (13.0-18.0); Mean Corp Hgb Conc. 33.2 g/dL (33.0-37.0); Mean Corpuscular Hgb 31.9 pg (27.0-31.0); Mean Corpuscular Volume 95.9 fL (80.0-94.0); Mean Platelet Volume 11.7 fL (7.4-10.4); Platelet Count 163 10^3/uL (130-400); Red Blood Cell Count 3.39 10^6/uL (4.70-6.10); Red Cell Dist. Width 14.3 % (11.5-14.5); White Blood Cell Count 10.2 10^3/uL (4.8-10.8)
[2024-04-30] MEDS: FLOMAX 0.4 MG PO ×2 (08:37→19:14)
[2024-04-30] MEDS: VIBRAMYCIN 100 MG PO ×2 (08:37→19:14)
[2024-04-30] MEDS: PROSCAR 5 MG PO (08:38)
[2024-04-30] MEDS: VITAMIN B-12 1000 MCG PO (08:38)
[2024-04-30] MEDS: LOTRISONE CREAM 1 APPLIC TOPICAL (08:39)
[2024-04-30 08:46] LABS: Blood Urea Nitrogen 29 mg/dl (9-20); Calcium 8.8 mg/dl (8.4-10.2); Carbon Dioxide 20 mmol/L (22-30); Chloride 112 mmol/L (98-107); Estimated Creatinine Clearance 30 ml/min; Glucose 92 mg/dl (70-99); Potassium 4.1 mmol/L (3.5-5.1); Sodium 141 mmol/L (135-145); eGFR 22.81
[2024-04-30 09:08] LABS: PSA, Total - Diagnostic 4.54 ng/ml (0.0-4.0)
--- NOTE | 2024-04-30 09:54 | W.PN.UPDATE ---
Update Note
Progress Note Update
pt's labs reviewed
cr slowly declining
good UO
psa only 4.5
cleared for discharge urologically- pt should call to schedule outpt f/u with dr peacock
--- NOTE | 2024-04-30 11:04 | W.PN.HOSP.TC ---
Today's Communication/Plan
-
d/c planning
medically ready for d/c with the andrade
Assessment / Plan
Assessment / Plan
pt is a 73 year old male
Acute kidney injury likely related to urinary retention--Creatinine 4.7 down to 2.8--will keep andrade at d/c--Ultrasound with impression of bilateral pelvicalyceal dilation, CT scan same----follow BMP
right Le redness and swelling since the nail trimming likely cellulitis--was on Clinda and Keflex as outpatient--changed to doxy--apprec podiatry --NO NEED for consult
Macrocytic anemia--Hemoglobin 11.6--not iron deficient--B12 deficient--started repletion, folate WNL
hxt of genital herpes--on acyclovir as prophylactically
depression/anxiety--bupropion,doxepin,lorazepam continued
essential HTN--hold lisinopril due to OLGA--hydralazine prn for SBP >150
BPH--Flomax continued--apprec urology
bilateral LE edema--right > left--no DVT by US in right leg
DVT prophylaxis--scd
CODE status--full code
dispo--too weak to go home--keep andrade--will need SNF
Anticipated Discharge: 24 - 48 hours
Subjective/Interval History
-
Date of Service: April 30, 2024
pt too weak to go home
Objective Data
-
Labs:
Laboratory Results
04/30/24
07:18
WBC 10.2
Hgb 10.8 L
Hct 32.5 L
Plt Count 163
Sodium 141
Potassium 4.1
Chloride 112 H
Carbon Dioxide 20 L
BUN 29 H
Creatinine 2.8 H
Glucose 92
Calcium 8.8
Vital Signs:
max temp for 24 hours
04/29/24
23:37
Temp 98.8 F
Vital Signs
Temp Pulse Resp BP Pulse Ox
98.2 F 83 16 132/70 96
04/30/24 07:16 04/30/24 07:16 04/30/24 07:16 04/30/24 07:16 04/30/24 07:16
I&O
04/29/24 04/30/24 05/01/24
06:59 06:59 06:59
Intake Total 2550 / 2550 1200 / 1200
Output Total 7275 / 7275 2400 / 2400
Balance -4725 / -4725 -1200 / -1200
Review of Systems
-
All other systems: Reviewed and negative
Physical Exam
-
General: Well Developed and Well Nourished
HEENT: Normocephalic and Atraumatic
Respiratory: Clear to Auscultation; Negative Wheezes or Rhonchi
Cardiac: Regular Rhythm and S1/S2; Negative Murmur
GI: Soft, Nontender, Nondistended and Normal Bowel Sounds
Genito-urinary: Andrade
Musculoskeletal: No Clubbing and No Cyanosis; Negative No Edema
Neuro: Awake
[2024-04-30 11:07] VITALS: BP 148/76; PULSE 101; O2SAT 94
[2024-04-30 15:49] VITALS: BP 121/60
[2024-04-30] MEDS: SINEQUAN 75 MG PO (22:01)
[2024-04-30] MEDS: WELLBUTRIN XL (24 hour extended release) 300 MG PO (22:02)
[2024-04-30] MEDS: ZOVIRAX 400 MG PO (22:02)
[2024-04-30 23:00] VITALS: BP 111/54
[2024-05-01 01:51] VITALS: BMI 38.0
[2024-05-01 07:05] VITALS: BP 122/70
--- NOTE | 2024-05-01 07:31 | W.PN.URO.CBU ---
Today's Communication / Plan
-
outpt f/u
Assessment / Plan
-
urinary retention with resultant hydro and STEPHANIE
pt's cr with slow decline
psa within nl range
discharge with andrade/ flomax and proscar and ask pt/rehab to schedule outpt f/u
call with any ?'s
plan reviewed with pt
Diagnosis
-
Date of Service: May 01, 2024
-
Patient Diagnosis:
urinary retention
hydro
STEPHANIE
Subjective
-
pt without any specific complaint
urine clear
cr slowly declining
psa 4.5
Objective
-
Vital Signs
Temp Pulse Resp BP Pulse Ox
97.9 F 86 20 111/54 95
04/30/24 23:00 04/30/24 23:00 04/30/24 23:00 04/30/24 23:00 04/30/24 23:00
Intake and Output
04/30/24 05/01/24 05/02/24
06:59 06:59 06:59
Intake Total 1200 / 1200 870 / 870
Output Total 2400 / 2400 1850 / 1850
Balance -1200 / -1200 -980 / -980
Intake:
Oral fluids 1200 / 1200 870 / 870
Output:
Urine, Andrade 2400 / 2400 1850 / 1850
Physical Exam
-
General - no acute distress
[2024-05-01 08:50] LABS: Hematocrit 33.8 % (39.0-52.0); Hemoglobin 11.4 g/dL (13.0-18.0); Mean Corp Hgb Conc. 33.7 g/dL (33.0-37.0); Mean Corpuscular Hgb 31.4 pg (27.0-31.0); Mean Corpuscular Volume 93.1 fL (80.0-94.0); Platelet Count 183 10^3/uL (130-400); Red Blood Cell Count 3.63 10^6/uL (4.70-6.10); Red Cell Dist. Width 14.1 % (11.5-14.5); White Blood Cell Count 10.7 10^3/uL (4.8-10.8)
[2024-05-01 09:11] LABS: Blood Urea Nitrogen 32 mg/dl (9-20); Carbon Dioxide 22 mmol/L (22-30); Chloride 110 mmol/L (98-107); Estimated Creatinine Clearance 33 ml/min; Glucose 92 mg/dl (70-99); Potassium 4.4 mmol/L (3.5-5.1); Sodium 139 mmol/L (135-145); eGFR 26.14
[2024-05-01] MEDS: VITAMIN B-12 1000 MCG PO (09:28)
[2024-05-01] MEDS: PROSCAR 5 MG PO (09:28)
[2024-05-01] MEDS: VIBRAMYCIN 100 MG PO ×2 (09:28→20:34)
[2024-05-01] MEDS: FLUSH (NSS) 1 FLUSH IV (09:28)
[2024-05-01] MEDS: LOTRISONE CREAM 1 APPLIC TOPICAL (09:28)
[2024-05-01] MEDS: FLOMAX 0.4 MG PO ×2 (09:28→20:35)
--- NOTE | 2024-05-01 10:07 | W.PN.HOSP.TC ---
Today's Communication/Plan
-
d/c planning for SNF
Assessment / Plan
Assessment / Plan
pt is a 73 year old male
Acute kidney injury likely related to urinary retention--Creatinine 4.7 down to 2.5--will keep andrade at d/c--Ultrasound with impression of bilateral pelvicaliceal dilation, CT scan same----follow BMP
right Le redness and swelling since the nail trimming likely cellulitis--was on Clinda and Keflex as outpatient--changed to doxy--apprec podiatry --NO NEED for consult
Macrocytic anemia--Hemoglobin 11.6--not iron deficient--B12 deficient--started repletion, folate WNL
hxt of genital herpes--on acyclovir as prophylactically
depression/anxiety--bupropion,doxepin,lorazepam continued
essential HTN--hold lisinopril due to OLGA--hydralazine prn for SBP >150
BPH--Flomax continued--apprec urology
bilateral LE edema--right > left--no DVT by US in right leg
DVT prophylaxis--scd
CODE status--full code
dispo--too weak to go home--keep andrade--will need SNF
Anticipated Discharge: 24 - 48 hours
Subjective/Interval History
-
Date of Service: May 01, 2024
pt feels constipated
Objective Data
-
Labs:
Laboratory Results
05/01/24
08:09
WBC 10.7
Hgb 11.4 L
Hct 33.8 L
Plt Count 183
Sodium 139
Potassium 4.4
Chloride 110 H
Carbon Dioxide 22
BUN 32 H
Creatinine 2.5 H
Glucose 92
Calcium 9.0
Vital Signs:
max temp for 24 hours
04/30/24
15:49
Temp 98 F
Vital Signs
Temp Pulse Resp BP Pulse Ox
97.7 F 81 16 122/70 97
05/01/24 07:05 05/01/24 07:05 05/01/24 07:05 05/01/24 07:05 05/01/24 09:26
I&O
04/30/24 05/01/24 05/02/24
06:59 06:59 06:59
Intake Total 1200 / 1200 870 / 870
Output Total 2400 / 2400 1850 / 1850
Balance -1200 / -1200 -980 / -980
Review of Systems
-
All other systems: Reviewed and negative
Abdomen/GI: Reports Constipated
Physical Exam
-
General: Well Developed, Well Nourished and No Apparent Distress
HEENT: Normocephalic and Atraumatic
Respiratory: Clear to Auscultation; Negative Wheezes or Rhonchi
Cardiac: Regular Rhythm and S1/S2; Negative Murmur
GI: Soft, Nontender, Nondistended and Normal Bowel Sounds
Genito-urinary: Andrade
Musculoskeletal: No Clubbing, No Cyanosis and Other (bilateral LE edema)
Neuro: Awake, Alert and Tremors
[2024-05-01 15:37] VITALS: BP 143/68
--- NOTE | 2024-05-01 16:33 | PTCARENOTE ---
Pt AAO x3, JEONG; has (+) arm tremors. Able to turn with assist x 1-2. legs weak. VSS. On room air- pulseox 9%, no SOB noted. Abd obese, soft, luz marina PO well; incont soft BM x1. Castle P/I large amts sl cloudy karma urine Resting in bed at
present, no c/o. Will continue to monitor.
[2024-05-01] MEDS: SENOKOT-S 1 TABLET PO (17:02)
--- NOTE | 2024-05-01 17:31 | CM ---
met with patient and spoke with over the phone.therapy has seen patient and has recommended skilled rehab. wanted referrlals sent to [facility] had no available beds and
wanted cm to contact [facility] on thursday.Plan snf placement pending [employer] auth.patient is ready per attending.
[2024-05-01] MEDS: SINEQUAN 75 MG PO (21:37)
[2024-05-01] MEDS: ZOVIRAX 400 MG PO (21:37)
[2024-05-01] MEDS: WELLBUTRIN XL (24 hour extended release) 300 MG PO (21:38)
[2024-05-01 23:31] VITALS: BP 124/62
[2024-05-02 07:45] VITALS: BP 128/59
[2024-05-02] MEDS: VIBRAMYCIN 100 MG PO ×2 (09:01→20:39)
[2024-05-02 09:02] LABS: Red Blood Cell Count 3.67 10^6/uL (4.70-6.10); White Blood Cell Count 11.3 10^3/uL (4.8-10.8)
[2024-05-02] MEDS: PROSCAR 5 MG PO (09:02)
[2024-05-02] MEDS: VITAMIN B-12 1000 MCG PO (09:02)
[2024-05-02] MEDS: FLOMAX 0.4 MG PO ×2 (09:02→20:39)
[2024-05-02] MEDS: LOTRISONE CREAM 1 APPLIC TOPICAL (09:02)
[2024-05-02 09:03] LABS: Hematocrit 34.6 % (39.0-52.0); Hemoglobin 11.5 g/dL (13.0-18.0); Mean Corp Hgb Conc. 33.2 g/dL (33.0-37.0); Mean Corpuscular Hgb 31.3 pg (27.0-31.0); Mean Corpuscular Volume 94.3 fL (80.0-94.0); Mean Platelet Volume 11.9 fL (7.4-10.4); Platelet Count 190 10^3/uL (130-400)
[2024-05-02] MEDS: SENOKOT-S PO ×2 (09:04→16:50)
[2024-05-02 09:32] LABS: Blood Urea Nitrogen 30 mg/dl (9-20); Calcium 9.1 mg/dl (8.4-10.2); Carbon Dioxide 23 mmol/L (22-30); Chloride 107 mmol/L (98-107); Estimated Creatinine Clearance 38 ml/min; Glucose 89 mg/dl (70-99); Potassium 4.2 mmol/L (3.5-5.1); Sodium 139 mmol/L (135-145); eGFR 30.47
--- NOTE | 2024-05-02 10:28 | W.PN.HOSP.TC ---
Today's Communication/Plan
-
d/c planning
Assessment / Plan
Assessment / Plan
pt is a 73 year old male
Acute kidney injury likely related to urinary retention--Creatinine 4.7 down to 2.2--will keep andrade at d/c--Ultrasound with impression of bilateral pelvicaliceal dilation, CT scan same----follow BMP
right Le redness and swelling since the nail trimming likely cellulitis--was on Clinda and Keflex as outpatient--changed to doxy--apprec podiatry --NO NEED for consult
Macrocytic anemia--Hemoglobin 11.6--not iron deficient--B12 deficient--started repletion, folate WNL
hxt of genital herpes--on acyclovir as prophylactically
depression/anxiety--bupropion,doxepin,lorazepam continued
essential HTN--hold lisinopril due to OLGA--hydralazine prn for SBP >150
BPH--Flomax continued--apprec urology
bilateral LE edema--right > left--no DVT by US in right leg
DVT prophylaxis--scd
CODE status--full code
dispo-medically stable for d/c--keep andrade--will need SNF
Anticipated Discharge: Within 24 hours
Subjective/Interval History
-
Date of Service: May 02, 2024
pt ready for d/c
Objective Data
-
Labs:
Laboratory Results
05/02/24
08:12
WBC 11.3 H
Hgb 11.5 L
Hct 34.6 L
Plt Count 190
Sodium 139
Potassium 4.2
Chloride 107
Carbon Dioxide 23
BUN 30 H
Creatinine 2.2 H
Glucose 89
Calcium 9.1
Vital Signs:
max temp for 24 hours
05/01/24
15:37
Temp 98.4 F
Vital Signs
Temp Pulse Resp BP Pulse Ox
97.5 F 81 18 128/59 93
05/02/24 07:45 05/02/24 07:45 05/02/24 07:45 05/02/24 07:45 05/02/24 07:45
I&O
05/01/24 05/02/24 05/03/24
06:59 06:59 06:59
Intake Total 870 / 870 1140 / 1140
Output Total 1850 / 1850 2300 / 2300
Balance -980 / -980 -1160 / -1160
Review of Systems
-
All other systems: Reviewed and negative
Physical Exam
-
General: Well Developed, Well Nourished and No Apparent Distress
HEENT: Normocephalic and Atraumatic
Respiratory: Clear to Auscultation; Negative Wheezes or Rhonchi
Cardiac: Regular Rhythm and S1/S2; Negative Murmur
GI: Soft, Nontender, Nondistended and Normal Bowel Sounds
Genito-urinary: Andrade
Musculoskeletal: No Clubbing, No Cyanosis and No Edema
Neuro: Tremors
--- NOTE | 2024-05-02 10:49 | CM ---
Patient seen at bedside. CM spoke with Catrachito from [facility] who indicated bed available and provided NPI numbers, CM to request auth pending [employer]. CM will continue to follow for discharge planning needs.
Plan; [facility] pending auth
--- NOTE | 2024-05-02 11:14 | CM ---
[employer] auth initiated in [employer].
[facility] NPI#[id number]
Dr Howard npi#[id number]
Pended reference # [id number].
Clinicals uploaded in [employer].
[2024-05-02 13:57] VITALS: BP 138/75; PULSE 96; O2SAT 94
--- NOTE | 2024-05-02 15:35 | W.DCSUMMARY ---
Addendum entered and electronically signed by Paddy Lewis MD 05/03/24 13:46:
Date of discharge :05/03/24
Patient was awaiting placement and the bed was available today. No overnight events and remains medically stable for discharge. No changes made from yesterday's plan.
Original Note:
Discharge Summary
Discharge Data
Date of Admission: 04/27/24
Date of Discharge: 05/02/24
-
Pending Results: No
Hospital Course
Primary care physician : Jefferson Malave
Principal Discharge diagnosis : Acute kidney injury related to urinary retention, right lower extremity redness and swelling
Chronic Discharge diagnosis : Macrocytic anemia, history of genital herpes, depression/anxiety, essential hypertension, benign prostatic hyperplasia, bilateral lower extremity edema, tremors
Hospital Course : Patient was a 73-year-old male who presented with complaints of right lower extremity redness and swelling since he had his toenails trimmed. He noted to have bloody drainage with some discomfort, swelling and redness. He was
prescribed clindamycin for which he took 10 days worth. He was then transitioned to Keflex and had a total of 9 days. There was some improvement but still had redness and swelling. He came to the emergency department and was started on oral
doxycycline. Of note he was noted to be in acute kidney injury bladder scan showed over 480 mL and a Castle catheter was placed. Patient was admitted.
Problem #1: Acute kidney injury related to urinary retention. Patient was seen in consultation by urology. Patient had an ultrasound which showed bilateral pelvicalyceal dilation and CAT scan of the abdomen pelvis showed the same. Patient's
creatinine was 4.7 on admission after placement of the catheter he is down to 2.2 today. Plans are for him to be discharged with the Castle catheter and follow-up with urology as an outpatient. Proscar was started.
Problem #2: Right lower extremity redness and swelling. Podiatry was consulted. The patient was seen and evaluated at the bedside. No open wounds or redness or any signs of infection was noted. There was no need for formal consult. Consult was
canceled.
Problem #3: All other medical issues. These include Macrocytic anemia, history of genital herpes, depression/anxiety, essential hypertension, benign prostatic hyperplasia, bilateral lower extremity edema, tremors. These medical issues were stable
during his hospitalization. Medications were continued as able.
Patient was seen in consultation by physical therapy and Occupational Therapy. They are recommending skilled rehab prior to him going home. Patient is stable for discharge to the rehab at this time. If there are any questions regarding this
dictation or his hospital stay, please not hesitate to call. Our office number is [phone].
Time for discharge 31 minutes.
Discharge Plan
-
Patient Disposition: Residential/SNF
Discharge Diagnosis/Procedures: Acute kidney injury related to urinary retention, right lower extremity redness and swelling, microcytic anemia, history of genital herpes, depression/anxiety, essential hypertension, benign prostatic hyperplasia,
bilateral lower extremity edema, tremors
Condition: Good
Diet: Regular
Activity: As tolerated
Driving Restrictions: No driving
Bathing Restrictions: None
Referrals:
Jefferson Malave MD [Family Provider] - in less than 1 week
Yordy Andrade Jr., MD [Active] - (Call to schedule outpatient follow-up)
Prescriptions:
New
acetaminophen 325 mg Tablet
650 mg PO Q4HPRN PRN (Reason: mild pain/FALL/temp> 100.4F) Qty: 0 0RF
polyethylene glycol 3350 [HealthyLax] 17 gram Powder In Packet
17 g PO DAILY Qty: 0 0RF
cyanocobalamin (vitamin B-12) 1,000 mcg Tablet
1,000 mcg PO DAILY Qty: 0 0RF
finasteride 5 mg Tablet
5 mg PO DAILY Qty: 0 0RF
Continued
doxepin 75 mg Capsule
75 mg PO HS
acyclovir 400 mg Tablet
400 mg PO HS
aspirin 81 mg Tablet,Delayed Release (Dr/Ec)
81 mg PO DAILY
lorazepam 0.5 mg Tablet
0.5 mg PO DAILYPRN PRN (Reason: anxiety)
tamsulosin 0.4 mg Capsule
0.4 mg PO QPM
bupropion HCl 300 mg Tablet Extended Release 24 Hr
300 mg PO HS
bisacodyl [Dulcolax (bisacodyl)] 10 mg Suppository
10 mg MA DAILYPRN PRN (Reason: constipation)
clotrimazole-betamethasone 1-0.05 % Cream
1 applic TOPICAL DAILY
Discontinued
lisinopril 20 mg Tablet
20 mg PO BID
cephalexin 500 mg Capsule
500 mg PO BID
Patient Comments:
04/27/24: filled 04/18/24, to take for 10 days
Discharge Orders:
Discharge Patient (As Directed); Ordered 05/02/24
Ordered By: Valery Clay
Discharge Date and Time
Print Language: KISWAHILI
[2024-05-02 15:48] VITALS: BP 136/62
[2024-05-02] MEDS: SINEQUAN 75 MG PO (22:50)
[2024-05-02] MEDS: WELLBUTRIN XL (24 hour extended release) 300 MG PO (22:50)
[2024-05-02] MEDS: ZOVIRAX 400 MG PO (22:50)
[2024-05-02 23:00] VITALS: BP 128/62
[2024-05-03 07:00] VITALS: BP 127/65
[2024-05-03] MEDS: LOTRISONE CREAM 1 APPLIC TOPICAL (08:50)
[2024-05-03] MEDS: VIBRAMYCIN 100 MG PO (08:51)
[2024-05-03] MEDS: FLOMAX 0.4 MG PO (08:51)
[2024-05-03] MEDS: PROSCAR 5 MG PO (08:51)
[2024-05-03] MEDS: VITAMIN B-12 1000 MCG PO (08:51)
[2024-05-03] MEDS: FLUSH (NSS) 1 FLUSH IV (08:51)
[2024-05-03 09:05] LABS: Blood Urea Nitrogen 29 mg/dl (9-20); Calcium 8.8 mg/dl (8.4-10.2); Carbon Dioxide 24 mmol/L (22-30); Chloride 106 mmol/L (98-107); Estimated Creatinine Clearance 38 ml/min; Glucose 92 mg/dl (70-99); Potassium 4.4 mmol/L (3.5-5.1); Sodium 138 mmol/L (135-145); eGFR 30.47
[2024-05-03] MEDS: SENOKOT-S PO (09:34)
--- NOTE | 2024-05-03 10:08 | CM ---
Addendum entered by Yamila Hartmann 05/03/24 11:06:
Transport time scheduled for 12:00 p.m. Anusha at [facility] made aware. Phone call to , Remedios, updated with transport time.
Original Note:
Auth approved for patient to discharge to [facility], auth #[id number], 05/03-05/15, next review 05/16 to Susan, phone: [phone], fax: [phone], updated provided to Anusha at [facility]. Patient seen bedside, discussed auth approval to
rehab. Patient requesting update made to . IMM reviewed, signed, placed in chart. CM will continue to follow for all discharge planning needs.
Plan; [facility], will need ambulance transport, awaiting confirmation time
[facility]
Report: [phone]
[2024-05-03 12:15] VITALS: BP 132/69
--- NOTE | 2024-05-03 13:43 | W.PN.HOSP.TC ---
Today's Communication/Plan
-
DC
Assessment / Plan
Assessment / Plan
pt is a 73 year old male
Acute kidney injury likely related to urinary retention--Creatinine 4.7 down to 2.2--cw andrade at d/c--Ultrasound with impression of bilateral pelvicaliceal dilation, CT scan same----follow BMP
right Le redness and swelling since the nail trimming likely cellulitis--was on Clinda and Keflex as outpatient--changed to doxy--apprec podiatry --NO NEED for consult
Macrocytic anemia--Hemoglobin 11.6--not iron deficient--B12 deficient--started repletion, folate WNL
hxt of genital herpes--on acyclovir as prophylactically
depression/anxiety--bupropion,doxepin,lorazepam continued
essential HTN--hold lisinopril due to OLGA-
BPH--Flomax continued--apprec urology
bilateral LE edema--right > left--no DVT by US in right leg
DVT prophylaxis--scd
CODE status--full code
Remains medically stable for discharge to rehab.
Discussed with case management-he has a bed at rehab. Requests COVID-19 testing which is done.
Total of discharge 35 minutes
Anticipated Discharge: Today
Subjective/Interval History
-
Date of Service: May 03, 2024
No overnight events.
Voices no specific complaints.
Denies any fever or chills.
Denies any nausea vomiting or abdominal pain.
Denies any shortness of breath or chest pain.
Objective Data
-
Labs:
Laboratory Results
05/03/24
07:46
Sodium 138
Potassium 4.4
Chloride 106
Carbon Dioxide 24
BUN 29 H
Creatinine 2.2 H
Glucose 92
Calcium 8.8
Vital Signs:
Vital Signs
Temp Pulse Resp BP Pulse Ox
98.3 F 92 16 132/69 95
05/03/24 12:15 05/03/24 12:15 05/03/24 12:15 05/03/24 12:15 05/03/24 08:47
I&O
05/02/24 05/03/24 05/04/24
06:59 06:59 06:59
Intake Total 1140 / 1140 480 / 480 720 / 720
Output Total 2300 / 2300 1200 / 1200 1475 / 1475
Balance -1160 / -1160 -720 / -720 -755 / -755
Review of Systems
-
Abdomen/GI: Denies Abdominal Pain, Nausea or Vomiting
Neuro: Denies Dizzy
Physical Exam
-
General: No Apparent Distress
HEENT: Moist Mucous Membranes
Respiratory: Non Labored Respirations; Negative Accessory Resp Muscle Use
Cardiac: Regular Rhythm and S1/S2
GI: Soft
Genito-urinary: Clear Urine and Andrade
Neuro: AO x 3
Psych: Calm
Data Reviewed
-
Labs: Labs Reviewed by me
== END 2024-05-03 12:47 | DRG 603 ==
LOC: 4 EAST ACU 22:42
PROVIDERS: Internal Medicine; Nurse Practitioner; Registered Nurse; ADMITTING PHYSICIAN Hospitalist; ATTENDING PHYSICIAN Internal Medicine; CONSULT PHYSICIAN Specialist; EMERGENCY PHYSICIAN Emergency Medicine; FAMILY PHYSICIAN Family Medicine
DX: L03.031 Cellulitis of right toe (principal); N13.30 Unspecified hydronephrosis; N17.9 Acute kidney failure, unspecified; D50.9 Iron deficiency anemia, unspecified; F32.A Depression, unspecified; D53.9 Nutritional anemia, unspecified; E66.01 Morbid (severe) obesity due to excess calories; I10 Essential (primary) hypertension; F41.9 Anxiety disorder, unspecified; G47.33 Obstructive sleep apnea (adult) (pediatric); K59.00 Constipation, unspecified; N40.1 Benign prostatic hyperplasia with lower urinary tract symptoms; R33.8 Other retention of urine; R31.9 Hematuria, unspecified; R25.1 Tremor, unspecified; Z79.82 Long term (current) use of aspirin; Z79.899 Other long term (current) drug therapy; Z86.19 Personal history of other infectious and parasitic diseases; Z96.653 Presence of artificial knee joint, bilateral; Z96.649 Presence of unspecified artificial hip joint
CPT/HCPCS: 51702; 51798; 73630; 74176; 76775; 80048; 80053; 81003; 82607; 82728; 82746; 83540; 83550; 83605; 84153; 85025; 85027; 93971; 97116; 97163; 97167; 97530; 99285

== ENCOUNTER 2024-06-20 14:11 | Emergency (ER) | payer OTHER, SELFPAY ==
[2024-06-20 14:15] VITALS: BP 161/76
--- NOTE | 2024-06-20 14:57 | ED.GENMED ---
History of Present Illness
General
Chief Complaint: Musculo-Skeletal Complaint
Source: patient
Time Seen by Provider: 06/20/24 14:34
History of Present Illness
History of Present Illness:
73-year-old male with past medical history of hypertension presenting to the emergency department for evaluation after he had an accidental fall on Thursday evening stating that he was throwing a short onto a chair and lost his balance while doing so
causing him to fall onto the ground landing on his right shoulder. Patient states that he did not have much pain on Thursday but throughout the weekend had gradually increased pain and diminished range of motion prompting him to come to the ER today.
Patient sustained no other injuries and has no other concerns at this time.
Past History
Past History
ED Past Medical History: HTN and Psychiatric
ED Past Surgical History: Cholecystectomy and Orthopedic
Social History
Tobacco: Non-smoker
Alcohol: None
Drug: None
Personal:
Living: with family
Review of Systems
Review of Systems
All Other Systems: ROS reviewed and negative except as documented in HPI and ROS
Phy Exam
Physical Exam
Physical Exam:
GENERAL: Alert , in no apparent distress
HEAD: NCAT
EYE: conjunctiva clear
NECK: Supple, no midline ttp
ENT: o/p clr, mmm.
CARDIAC: Regular rate and rhythm
LUNGS: Clear breath sounds bilaterally, no acute respiratory distress, no wheezes/rales/rhonchi
NEUROLOGICAL: Alert and oriented
SKIN: Warm and dry, skin intact.
MUSCULOSKELETAL: RUE: no obvious deformities, erythema, edema, ecchymosis, abrasions/lacerations. mild diffuse ttp over humeral head. LROM at shoulder 2/2 pain. remainder of extremity has normal ROM, NVI. Remainder of extremity is WNL
PSYCH: Normal and appropriate interaction.
Scores
Heart Failure Risk
Heart Failure Risk Score: Not Applicable
Heart Score for Chest Pain Patients
STEMI patient?: Not applicable
Withdrawal Assessment of Alcohol
Withdrawal Assessment Completed?: Not applicable
Course
Orders/Labs/Results
Orders:
Orders
06/20/24 14:38
CR Shoulder, Trauma - Right Urgent
Comment:
Reason For Exam: fall, decreased ROM
06/20/24 15:42
Basic Metabolic Panel Urgent
06/20/24 15:42
Vital Signs
Initial and Last Documented VS:
Initial Vital Signs
Temp Pulse Resp BP Pulse Ox
98.4 F 88 16 161/76 95
06/20/24 14:15 06/20/24 14:15 06/20/24 14:15 06/20/24 14:15 06/20/24 14:15
Last Documented Vital Signs
Temp Pulse Resp BP Pulse Ox
98.4 F 86 16 158/79 96
06/20/24 14:15 06/20/24 16:00 06/20/24 16:00 06/20/24 16:00 06/20/24 16:00
MDM/Problems Addressed
Differential Diagnosis Includes:
sprain, contusion, fracture, dislocation
MDM/Problems Addressed:
73-year-old male presenting to the emergency department for evaluation for an accidental fall where he injured his right shoulder, initially had minimal pain but now with increased pain and decreased range of motion. No previous history of injury
or surgery. Suspect shoulder sprain/rotator cuff injury is most likely diagnosis. Will obtain x-ray for further evaluation. Patient declining anything for pain. Anticipate discharge home.
*Radiology
Radiology exam reviewed: preliminary read by ED provider (no fracture, significant degenerative changes)
*Pulse Oximetry
Patient hypoxic: no
*Critical Care Note
Total Time (30-74mins, 75-104mins- exclusive of procedures): Not Applicable
Patient Management
Escalation/DeEscalation of care consider admission/obs:
Patient's x-ray without any acute fractures. There is significant degenerative changes seen. Patient following my initial examination did request lab work for repeat creatinine as he was supposed to get this done as an outpatient after he had a
creatinine done which was 1.5. On repeat this is down to 1.0. Patient is stable for discharge home and outpatient follow-up with orthopedics.
ED Attending Note
-
Portions of this chart may have been created with voice recognition software.� Occasional wrong word or��sound alike� substitutions may have occurred due to the inherent limitations of voice recognition software.
Discharge Plan
Departure
Patient Disposition: Home (Routine Discharge)
Date of Disposition: 06/20/24
Time of Disposition: 16:10
Patient with high blood pressure during this ER visit?: Yes
Discharge Problem:
Sprain of right shoulder
Instructions: Shoulder Sprain (DC)
Prescriptions:
No Action
doxepin 75 mg Capsule
75 mg PO HS
acyclovir 400 mg Tablet
400 mg PO HS
aspirin 81 mg Tablet,Delayed Release (Dr/Ec)
81 mg PO DAILY
lorazepam 0.5 mg Tablet
0.5 mg PO DAILYPRN PRN (Reason: anxiety)
tamsulosin 0.4 mg Capsule
0.4 mg PO QPM
bupropion HCl 300 mg Tablet Extended Release 24 Hr
300 mg PO HS
bisacodyl [Dulcolax (bisacodyl)] 10 mg Suppository
10 mg NV DAILYPRN PRN (Reason: constipation)
clotrimazole-betamethasone 1-0.05 % Cream
1 applic TOPICAL DAILY
acetaminophen 325 mg Tablet
650 mg PO Q4HPRN PRN (Reason: mild pain/FALL/temp> 100.4F) Qty: 0 0RF
polyethylene glycol 3350 [HealthyLax] 17 gram Powder In Packet
17 g PO DAILY Qty: 0 0RF
cyanocobalamin (vitamin B-12) 1,000 mcg Tablet
1,000 mcg PO DAILY Qty: 0 0RF
finasteride 5 mg Tablet
5 mg PO DAILY Qty: 0 0RF
Referrals:
John Caballero MD [Active] - (Ortho)
Jefferson Malave MD [Family Provider] -
Interventions
Interventions:
*Risk Screen - Suicide Last Done: 06/20/24 14:17
*General Assessment Last Done: 06/20/24 14:17
*Neglect/Abuse Screening Last Done: 06/20/24 14:17
ED- Fall Risk Assessment Last Done: 06/20/24 16:15
*ED COVID-19 Vaccine History Last Done: 06/20/24 14:15
ED-Musculoskeletal Assessment Last Done: 06/20/24 14:17
Discharge Date and Time
Print Language: WOLOF
[2024-06-20 16:00] VITALS: BP 158/79
[2024-06-20 16:07] LABS: Blood Urea Nitrogen 16 mg/dl (9-20); Calcium 8.8 mg/dl (8.4-10.2); Carbon Dioxide 23 mmol/L (22-30); Chloride 105 mmol/L (98-107); Glucose 92 mg/dl (70-99); Potassium 4.1 mmol/L (3.5-5.1); Sodium 143 mmol/L (135-145); eGFR > 60.00
[2024-06-20 18:27] VITALS: BP 162/77
== END 2024-06-20 18:28 | disposition home or self-care (01) ==
LOC: EMR 14:11
PROVIDERS: Physician Assistant Medical; EMERGENCY PHYSICIAN Emergency Medicine; FAMILY PHYSICIAN Family Medicine
DX: S43.401A Unspecified sprain of right shoulder joint, initial encounter (principal); W01.0XXA Fall on same level from slipping, tripping and stumbling without subsequent striking against object, initial encounter; M25.511 Pain in right shoulder; I10 Essential (primary) hypertension; Z90.49 Acquired absence of other specified parts of digestive tract
CPT/HCPCS: 99283; 73030; 80048

== ENCOUNTER → 2024-06-28 09:49 | Outpatient (REF) | payer OTHER, SELFPAY | LOC: HWRAD 09:49 | PROVIDERS: ATTENDING PHYSICIAN Urology; FAMILY PHYSICIAN Family Medicine | DX: N13.39 Other hydronephrosis (principal) | CPT/HCPCS: 76775 ==

== ENCOUNTER 2024-07-19 19:01 | Inpatient (IN) | payer OTHER, SELFPAY ==
[2024-07-19] VITALS (9 sets, daily range): BP systolic 124–174; BP diastolic 61–106; BMI 37.0; BMI 35.5
[2024-07-19 12:39] LABS: % Basophils 0.8 % (0-2); % Eosinophils 0.7 % (0-6); % Immature Granulocytes 0.7 % (0-0.5); % Lymphocytes 9.7 % (20.5-51.1); % Monocytes 9.8 % (1.7-9.3); % Neutrophils 78.3 % (42.2-75.2); Absolute Basophils 0.1 10^3/uL (0-0.2); Absolute Eosinophils 0.1 10^3/uL (0-0.7); Absolute Immature Granulocytes 0.1 10^3/uL (0-0.05); Absolute Lymphocytes 1.3 10^3/uL (1.2-3.4); Absolute Monocytes 1.3 10^3/uL (0.1-0.6); Absolute Neutrophils 10.5 10^3/uL (1.4-6.5); Hematocrit 36.9 % (39.0-52.0); Hemoglobin 12.7 g/dL (13.0-18.0); Mean Corp Hgb Conc. 34.4 g/dL (33.0-37.0); Mean Platelet Volume 10.4 fL (7.4-10.4); Nucleated Red Blood Cells % 0 % (-); Platelet Count 262 10^3/uL (130-400); Red Cell Dist. Width 13.6 % (11.5-14.5); White Blood Cell Count 13.4 10^3/uL (4.8-10.8)
[2024-07-19 13:57] LABS: ALT (SGPT) 22 U/L (0-50); AST (SGOT) 22 U/L (17-59); Albumin 3.9 g/dl (3.5-5.0); Alkaline Phosphatase 102 U/L (38-126); Blood Urea Nitrogen 17 mg/dl (9-20); Calcium 9.4 mg/dl (8.4-10.2); Carbon Dioxide 25 mmol/L (22-30); Chloride 105 mmol/L (98-107); Estimated Creatinine Clearance 68 ml/min; Glucose 105 mg/dl (70-99); Potassium 4.2 mmol/L (3.5-5.1); Sodium 142 mmol/L (135-145); Total Bilirubin 0.9 mg/dl (0.2-1.3); Total Protein 6.9 g/dl (6.3-8.2); eGFR > 60.00
--- NOTE | 2024-07-19 15:09 | ED.GENMED ---
History of Present Illness
<Dylan Grubbs Jr., PA-C - Last Filed: 07/20/24 08:06>
General
Chief Complaint: Bowel Problem
Source: patient
Exam Limitations: none
Time Seen by Provider: 07/19/24 12:50
Nursing documentation reviewed up to this point in time: agreed with
History of Present Illness
History of Present Illness:
73-year-old male presenting to the emergency department today with concerns of difficulty urinating over the past 3 to 4 days as well as decreased bowel movements over the past few days. Previously had a urinary catheter up until 2 weeks ago
initially had no difficulty urinating the first few days after this was removed 2 weeks ago. Denies any chest pain shortness of breath no ongoing abdominal pain.
Past History
<REYNA Prajapati Jr. Last Filed: 07/20/24 08:06>
Past History
ED Past Medical History: HTN and Psychiatric
ED Past Surgical History: Cholecystectomy and Orthopedic
Social History
Tobacco: Non-smoker
Alcohol: None
Drug: None
Personal:
Living: with family
Review of Systems
<REYNA Prajapati Jr. Last Filed: 07/20/24 08:06>
Review of Systems
Allergies reviewed?: Yes
All Other Systems: ROS reviewed and negative except as documented in HPI and ROS
Phy Exam
<REYNA Prajapati Jr. Last Filed: 07/20/24 08:06>
Physical Exam
Physical Exam:
GENERAL: Alert , in no apparent distress
EYE: pupils equal and reactive
NECK: Supple, no significant adenopathy.
ENT: o/p clr, mmm.
CARDIAC: Regular rate and rhythm .
LUNGS: Clear breath sounds bilaterally, no acute respiratory distress, no wheezes/rales/rhonchi
ABDOMEN: Soft, without focal tenderness, no r/g, no cvat
NEUROLOGICAL: Alert and oriented, no focal neuro deficits
SKIN: Warm and dry, skin intact.
MUSCULOSKELETAL: No edema, well perfused.
PSYCH: Normal and appropriate interaction.
Course
<Dylan Grubbs Jr., PAJovita - Last Filed: 07/20/24 08:06>
Orders/Labs/Results
Orders:
Orders
07/19/24 12:18
Complete Blood Count/With Diff Urgent
07/19/24 13:00
CT Abd/Pel (IV only)-DH only Urgent
Comment:
Reason For Exam: lower abd pain
07/19/24 13:28
Comprehensive Metabolic Panel Urgent
07/19/24 Dinner
Cholesterol Lowering
At Your Request: Limited Participation
Cholesterol Lowering: Sodium, 2 Gram
07/19/24 15:21
Enema- Treatment ONCE
Type: Soap Suds
07/19/24 15:26
Acetaminophen [Tylenol] 1,000 mg .ROUTE .STK-MED ONE
07/19/24 15:28
Acetaminophen [Tylenol] 1,000 mg PO NOW STA
07/19/24 15:32
Urinalysis Reflex To Culture Urgent
Date Specimen was Collected: 07/19/24
Time Specimen was Collected: 15:27
Urine Microscopic Reflex Cult Urgent
Urine Culture Urgent
W[facility] Source: U
Specimen Description:
Date Specimen was Collected: 07/19/24
Time Specimen was Collected: 15:27
07/19/24 18:35
Cefepime HCl [Maxipime] 1,000 mg IV NOW STA
Sterile Water [Sterile Water For Injection] 10 ml IV NOW STA
07/19/24 18:36
Admit/Transfer Patient As Directed
Co-Sign Provider:
Level of Care: Inpatient admission
Assign to:: Telemetry
Physician / Group: arturo street
Diagnosis: sepsis 2/2 to uti, fecal impact,gen weakness due to uti/tremors undiagnosed
Reason for Telemetry: Arrhythmia
Date to Stop Telemetry: 07/22/24
Time to Stop Telemetry: 11:00
Reason for Hospitalization: sepsis 2/2 to uti, fecal impact,gen weakness due to uti/tremors undiagnosed
Expected length of stay greater than two midnights?: Yes
ELOS- Estimated Length of Stay in days: 5
I certify the patient meets the requirements for IP care: Yes
Code Status As Directed
Resuscitation Status: Full Code
07/19/24 18:40
PRN Pain Medication Management As Directed
May give lesser potent ordered pain med per pt: Yes
preference::
Protocol:: Medication orders for pain may be administered in a
manner that supports deferring to patient preference
when the pt is:
- Requesting an ordered lesser potent pain medication.
Least to most potent pain medications are defined
as: acetaminophen < NSAID < tramadol < opioids
(morphine, oxycodone, hydromorphone).
- Requesting a lesser dose of the same medication IF
ORDERED.
- Requesting a less intrusive route of administration
if both routes are prescribed by the provider (PO <
IV).
07/19/24 20:07
0.9% Sodium Chloride 1000 ml [Nss] 1,000 ml IV 80 mls/hr
Bisacodyl [Dulcolax] 10 mg RECTAL DAILYPRN PRN
Bisacodyl [Dulcolax] 10 mg RECTAL [id number] PRN
Docusate W/Senna [Senokot-S] 1 tablet PO BIDPRN PRN
Lisinopril [Zestril] 20 mg PO BID
Lorazepam [Ativan] 0.5 mg PO DAILYPRN PRN
Polyethylene Glycol Powder [Miralax] 17 grams PO DAILYPRN PRN
07/19/24 20:07
Activity As Directed
Activity Level: With Assistance
Bladder Scan As Directed
Follow Bladder Retention/Intermittent Cath Algorithm?: Yes
PRN if no void in __ hours: 6
Frequency: Per Retention Algorithm
If Bladder Scan Result >: 400
then:: Straight cath
Intake/ Output As Directed
Frequency: Per unit guidelines
Straight Cath As Directed
Frequency: Per Retention Algorithm
Additional Instructions: straight cath as needed per acute urinary retention algorithm for 24 hrs
Additional Instructions: for bladder scan greater than 400 mL
Vital Signs As Directed
Frequency: Per unit guidelines
Weight As Directed
Frequency: Daily
Ot Eval And Treat Routine
Pt Eval And Treat Routine
Activity Level: As Tolerated
DX Deep Vein Thrombosis Video Routine
07/19/24 22:00
Bupropion(24Hr)Extended Releas [WELLBUTRIN XL (24 hour extended release)] 300 mg PO HS
Doxepin [Sinequan] 75 mg PO HS
HydrALAZINE [Apresoline] 10 mg PO TID
07/20/24 06:00
Complete Blood Count/With Diff IN AM
Comprehensive Metabolic Panel IN AM
07/20/24 08:00
Aspirin Low Dose EC [Aspir Low (Enteric Coated)] 81 mg PO DAILY
Cefepime HCl [Maxipime] 1,000 mg IV Q12H
Finasteride [Proscar] 5 mg PO DAILY
07/20/24 18:00
Clotrimazole/Betamet Diprop [Lotrisone Cream] 1 applic TOPICAL QPM
Enoxaparin Sodium [Lovenox] 40 mg SC QPM
Tamsulosin [Flomax] 0.4 mg PO QPM
07/21/24 06:00
Complete Blood Count/With Diff IN AM
Comprehensive Metabolic Panel IN AM
07/22/24 06:00
Complete Blood Count/With Diff IN AM
Comprehensive Metabolic Panel IN AM
07/22/24 11:00
DC Protocol for Telemetry ONCE
07/23/24 06:00
Complete Blood Count/With Diff IN AM
Comprehensive Metabolic Panel IN AM
Abnormal Lab Results
07/19/24 07/19/24 07/19/24
12:18 13:28 15:32
WBC 13.4 H 10^3/uL
(4.8-10.8)
RBC 4.10 L 10^6/uL
(4.70-6.10)
Hgb 12.7 L g/dL
(13.0-18.0)
Hct 36.9 L %
(39.0-52.0)
Abs Immat Gran (auto) 0.1 H 10^3/uL
(0-0.05)
Absolute Neuts (auto) 10.5 H 10^3/uL
(1.4-6.5)
Absolute Monos (auto) 1.3 H 10^3/uL
(0.1-0.6)
Immature Gran % 0.7 H %
(0-0.5)
Neutrophils % 78.3 H %
(42.2-75.2)
Lymphocytes % 9.7 L %
(20.5-51.1)
Monocytes % 9.8 H %
(1.7-9.3)
Glucose 105 H mg/dl
(70-99)
Ur Occult Blood Reflex 2+ A
(Negative)
Leukocyte Esterase Rfl 2+ A
(Negative)
Urine RBC 3-6 A /HPF
(0-2)
Urine WBC (Reflex) 80-90 A /HPF
(0-5)
Urine Bacteria (Reflex) Many A
(Negative)
07/19/24 12:18
07/19/24 13:28
Vital Signs
Initial and Last Documented VS:
Initial Vital Signs
Temp Pulse Resp
99.2 F 102 20
07/19/24 12:09 07/19/24 12:09 07/19/24 12:09
Last Documented Vital Signs
Temp Pulse Resp BP Pulse Ox
98.6 F 104 18 145/73 95
07/20/24 03:48 07/20/24 03:48 07/20/24 03:48 07/20/24 03:48 07/20/24 03:48
<Isai Fishman PA-C - Last Filed: 07/19/24 17:40>
Orders/Labs/Results
Orders:
Orders
07/19/24 12:18
Complete Blood Count/With Diff Urgent
07/19/24 13:00
CT Abd/Pel (IV only)-DH only Urgent
Comment:
Reason For Exam: lower abd pain
07/19/24 13:28
Comprehensive Metabolic Panel Urgent
07/19/24 Dinner
Cholesterol Lowering
At Your Request: Limited Participation
Cholesterol Lowering: Sodium, 2 Gram
07/19/24 15:21
Enema- Treatment ONCE
Type: Soap Suds
07/19/24 15:26
Acetaminophen [Tylenol] 1,000 mg .ROUTE .STK-MED ONE
07/19/24 15:28
Acetaminophen [Tylenol] 1,000 mg PO NOW STA
07/19/24 15:32
Urinalysis Reflex To Culture Urgent
Date Specimen was Collected: 07/19/24
Time Specimen was Collected: 15:27
Urine Microscopic Reflex Cult Urgent
Urine Culture Urgent
[facility] Source: U
Specimen Description:
Date Specimen was Collected: 07/19/24
Time Specimen was Collected: 15:27
07/19/24 18:35
Cefepime HCl [Maxipime] 1,000 mg IV NOW STA
Sterile Water [Sterile Water For Injection] 10 ml IV NOW STA
07/19/24 18:36
Admit/Transfer Patient As Directed
Co-Sign Provider:
Level of Care: Inpatient admission
Assign to:: Telemetry
Physician / Group: arturo street
Diagnosis: sepsis 2/2 to uti, fecal impact,gen weakness due to uti/tremors undiagnosed
Reason for Telemetry: Arrhythmia
Date to Stop Telemetry: 07/22/24
Time to Stop Telemetry: 11:00
Reason for Hospitalization: sepsis 2/2 to uti, fecal impact,gen weakness due to uti/tremors undiagnosed
Expected length of stay greater than two midnights?: Yes
ELOS- Estimated Length of Stay in days: 5
I certify the patient meets the requirements for IP care: Yes
Code Status As Directed
Resuscitation Status: Full Code
07/19/24 18:40
PRN Pain Medication Management As Directed
May give lesser potent ordered pain med per pt: Yes
preference::
Protocol:: Medication orders for pain may be administered in a
manner that supports deferring to patient preference
when the pt is:
- Requesting an ordered lesser potent pain medication.
Least to most potent pain medications are defined
as: acetaminophen < NSAID < tramadol < opioids
(morphine, oxycodone, hydromorphone).
- Requesting a lesser dose of the same medication IF
ORDERED.
- Requesting a less intrusive route of administration
if both routes are prescribed by the provider (PO <
IV).
07/19/24 20:07
0.9% Sodium Chloride 1000 ml [Nss] 1,000 ml IV 80 mls/hr
Bisacodyl [Dulcolax] 10 mg RECTAL DAILYPRN PRN
Bisacodyl [Dulcolax] 10 mg RECTAL [id number] PRN
Docusate W/Senna [Senokot-S] 1 tablet PO BIDPRN PRN
Lisinopril [Zestril] 20 mg PO BID
Lorazepam [Ativan] 0.5 mg PO DAILYPRN PRN
Polyethylene Glycol Powder [Miralax] 17 grams PO DAILYPRN PRN
07/19/24 20:07
Activity As Directed
Activity Level: With Assistance
Bladder Scan As Directed
Follow Bladder Retention/Intermittent Cath Algorithm?: Yes
PRN if no void in __ hours: 6
Frequency: Per Retention Algorithm
If Bladder Scan Result >: 400
then:: Straight cath
Intake/ Output As Directed
Frequency: Per unit guidelines
Straight Cath As Directed
Frequency: Per Retention Algorithm
Additional Instructions: straight cath as needed per acute urinary retention algorithm for 24 hrs
Additional Instructions: for bladder scan greater than 400 mL
Vital Signs As Directed
Frequency: Per unit guidelines
Weight As Directed
Frequency: Daily
Ot Eval And Treat Routine
Pt Eval And Treat Routine
Activity Level: As Tolerated
DX Deep Vein Thrombosis Video Routine
07/19/24 22:00
Bupropion(24Hr)Extended Releas [WELLBUTRIN XL (24 hour extended release)] 300 mg PO HS
Doxepin [Sinequan] 75 mg PO HS
HydrALAZINE [Apresoline] 10 mg PO TID
07/20/24 06:00
Complete Blood Count/With Diff IN AM
Comprehensive Metabolic Panel IN AM
07/20/24 08:00
Aspirin Low Dose EC [Aspir Low (Enteric Coated)] 81 mg PO DAILY
Cefepime HCl [Maxipime] 1,000 mg IV Q12H
Finasteride [Proscar] 5 mg PO DAILY
07/20/24 18:00
Clotrimazole/Betamet Diprop [Lotrisone Cream] 1 applic TOPICAL QPM
Enoxaparin Sodium [Lovenox] 40 mg SC QPM
Tamsulosin [Flomax] 0.4 mg PO QPM
07/21/24 06:00
Complete Blood Count/With Diff IN AM
Comprehensive Metabolic Panel IN AM
07/22/24 06:00
Complete Blood Count/With Diff IN AM
Comprehensive Metabolic Panel IN AM
07/22/24 11:00
DC Protocol for Telemetry ONCE
07/23/24 06:00
Complete Blood Count/With Diff IN AM
Comprehensive Metabolic Panel IN AM
Abnormal Lab Results
07/19/24 07/19/24 07/19/24
12:18 13:28 15:32
WBC 13.4 H 10^3/uL
(4.8-10.8)
RBC 4.10 L 10^6/uL
(4.70-6.10)
Hgb 12.7 L g/dL
(13.0-18.0)
Hct 36.9 L %
(39.0-52.0)
Abs Immat Gran (auto) 0.1 H 10^3/uL
(0-0.05)
Absolute Neuts (auto) 10.5 H 10^3/uL
(1.4-6.5)
Absolute Monos (auto) 1.3 H 10^3/uL
(0.1-0.6)
Immature Gran % 0.7 H %
(0-0.5)
Neutrophils % 78.3 H %
(42.2-75.2)
Lymphocytes % 9.7 L %
(20.5-51.1)
Monocytes % 9.8 H %
(1.7-9.3)
Glucose 105 H mg/dl
(70-99)
Ur Occult Blood Reflex 2+ A
(Negative)
Leukocyte Esterase Rfl 2+ A
(Negative)
Urine RBC 3-6 A /HPF
(0-2)
Urine WBC (Reflex) 80-90 A /HPF
(0-5)
Urine Bacteria (Reflex) Many A
(Negative)
07/19/24 12:18
07/19/24 13:28
Vital Signs
Initial and Last Documented VS:
Initial Vital Signs
Temp Pulse Resp
99.2 F 102 20
07/19/24 12:09 07/19/24 12:09 07/19/24 12:09
Last Documented Vital Signs
Temp Pulse Resp BP Pulse Ox
98.6 F 104 18 145/73 95
07/20/24 03:48 07/20/24 03:48 07/20/24 03:48 07/20/24 03:48 07/20/24 03:48
<Dylan Grubbs Jr., PA-C - Last Filed: 07/20/24 08:06>
MDM/Problems Addressed
MDM/Problems Addressed:
73-year-old male presenting to the emergency department today with concerns of difficulty with bowel movements as well as urination over the past 3 to 4 days. Had a urinary catheter 2 weeks ago due to urinary retention which was removed 2 weeks ago
initially had no difficulty urinating until the last few days. Denies fevers abdominal pain chest pain. CT scan performed that showed large amount of stool and fecal impaction. Also showed some hydronephrosis that is unchanged from previous.
Unclear if urinary retention is secondary to patient's large amount of stool burden or separate urinary blockage. Patient pending urinalysis and enema when care transitioned.
<Isai Fishman PA-C - Last Filed: 07/19/24 17:40>
*Critical Care Note
Total Time (30-74mins, 75-104mins- exclusive of procedures): Not Applicable
<REYNA Sharp Last Filed: 07/19/24 17:40>
Update Note
Update Note:
Temp currently 100.4. Minimal results with enema. Urinalysis consistent with UTI. Patient requires heavy assist to get to commode. Will admit to hospital for fever and weakness in the setting of UTI
ED Attending Note
<Dylan Grubbs Jr., REYNA - Last Filed: 07/20/24 08:06>
-
Portions of this chart may have been created with voice recognition software.� Occasional wrong word or��sound alike� substitutions may have occurred due to the inherent limitations of voice recognition software.
Discharge Plan
Departure
Patient Disposition: Admit
Date of Disposition: 07/19/24
Time of Disposition: 17:40
Admit to: Telemetry
Presentation/result/management discussed w/ accepting MD/DO: Hospitalist
Patient with high blood pressure during this ER visit?: No
Condition: Good
Covid-19: Not Applicable
Discharge Problem:
Acute UTI, Constipation
Interventions
Interventions:
*Risk Screen - Suicide Last Done: 07/19/24 12:14
*General Assessment Last Done: 07/19/24 12:14
*Neglect/Abuse Screening Last Done: 07/19/24 12:14
ED- Fall Risk Assessment Last Done: 07/19/24 12:16
*ED COVID-19 Vaccine History Last Done: 07/19/24 12:14
*Nursing Disposition Last Done: 07/19/24 20:01
PC-Iuicxs-Lstrsfzxnl Assessment Last Done: 07/19/24 12:15
Discharge Date and Time
Discharge Date/Time: 07/19/24 20:02
[2024-07-19] MEDS: TYLENOL 1000 MG PO (15:28)
[2024-07-19 15:40] LABS: Urine Albumin Trace (Neg - Trace); Urine Bilirubin Negative (Negative); Urine Character Clear (Clear); Urine Color Yellow; Urine Glucose Negative (Negative); Urine Ketone Negative (Negative); Urine Leukocyte 2+ (Negative); Urine Nitrite Negative (Negative); Urine Occult Blood 2+ (Negative); Urine Urobilinogen Negative (Neg - 1+)
[2024-07-19 15:55] LABS: Urine Bacteria Many (Negative); Urine Squamous Cell 0-2 /LPF (Few); Urine White Cell 80-90 /HPF (0-5)
--- NOTE | 2024-07-19 18:00 | HPS.HSE ---
Family Physician
-
Family Physician: Jefferson Malave
Chief Complaint
-
Constipation x 7 days, difficulty urinating x 5 days
History of Present Illness
73-year-old male from home complaining of 7-day history of constipation with no bowel movement. He reports he was taking Colace with no relief. His had him take 2 doses of MiraLAX over the past 2 days but again he had no bowel movement.
While in the ER he received an enema then states he had a large bowel movement but still feels somewhat constipated in his upper abdomen. He was noted to be very weak with walking requiring assist of 2 and noted to be febrile with 101.4 temp in ER
.He also complains of difficulty urinating over the past 5 days with only small amounts of urine coming out. He has past medical history of urinary retention in April 2024 requiring Castle catheter due to OLGA with creat rising to 4 but then
improving with Castle catheter.He was started on Proscar at that time There was no urine culture obtained at that time His Castle catheter was only taken out 2 weeks ago by his visiting nurse. For the first week he was doing well but over the past 5
days he has had the difficulty with urination. He thought possibly due to constipation. He follows with urology at [facility] in [facility] Dr. Victor Hugo Bejarano [phone]
Past medical history macrocytic anemia, genital herpes, depression/anxiety, essential HTN, BPH, bilateral lower extremity edema, tremors, urinary retention that required Castle catheter insertion, right lower extremity cellulitis due to nail cutting,
chronic ambulatory dysfunction, sleep apnea
Medical History
Past Medical History
Past Medical History: Reports Other
Additional Past Medical History:
macrocytic anemia
genital herpes
depression/anxiety
essential HTN
BPH
Urinary retention that required Castle catheter insertion April 2024
bilateral lower extremity edema
tremors
right lower extremity cellulitis due to nail cutting April 2024
chronic ambulatory dysfunction,
sleep apnea
Past Surgical History: Reports Other
Additional Past Surgical History:
ACL reconstruction
hip replacement
back surgery
right knee replacement
left knee replacement
Social History
Tobacco: Non-smoker
Alcohol: None
Drug: None
Personal:
Living: With Family
Employment: Retired
Family History
Family History: Not pertinent
Allergies / Home Medications
Allergies reflects when Allergies were last updated in [employer] [facility].
Home Medications with original date entered in [employer] [facility]
Allergy/Medication List:
Allergies
Allergy/AdvReac Type Severity Reaction Status Date / Time
Latex, Natural Rubber Allergy redness Verified 07/19/24 12:08
Neoprene Allergy redness Uncoded 07/19/24 12:08
and
blisters
Home Medications
acyclovir 400 mg tablet 400 mg PO HS 02/15/24
aspirin 81 mg tablet,delayed release 81 mg PO DAILY 02/15/24
bupropion HCl 300 mg 24 hr tablet, extended release 300 mg PO HS 02/15/24
doxepin 75 mg capsule 75 mg PO HS 02/15/24
lorazepam 0.5 mg tablet 0.5 mg PO DAILYPRN PRN anxiety 02/15/24
tamsulosin 0.4 mg capsule 0.4 mg PO QPM 02/15/24
bisacodyl 10 mg rectal suppository (Dulcolax (bisacodyl)) 10 mg [place] DAILYPRN PRN constipation 04/27/24
clotrimazole-betamethasone 1 %-0.05 % topical cream 1 applic topical QPM 04/27/24
acetaminophen 325 mg tablet 650 mg (2 x 325 mg) PO Q4HPRN PRN mild pain/FALL/temp> 100.4F #0 tabs 05/02/24
finasteride 5 mg tablet 5 mg PO DAILY #0 tabs 05/02/24
azithromycin 250 mg tablet 250 mg PO PER PKG DIR 07/19/24
hydralazine 10 mg tablet 10 mg PO TID 07/19/24
lisinopril 20 mg tablet 20 mg PO BID 07/19/24
magnesium citrate 300 ml PO DAILY PRN Constipation #296 mL 07/19/24
polyethylene glycol 3350 17 gram/dose oral powder (Miralax) 4 g PO DAILY #119 grams 07/19/24
Review of Systems
-
History Source: Patient
A 12 point ROS was completed and negative except as noted: Yes
Constitutional: Reports Fever, Fatigue and Chills
EENT: Denies Sore Throat or Runny Nose
Respiratory: Denies Cough or Trouble Breathing
Cardiac: Denies Chest Pain, Diaphoresis, Palpitations or Syncope
Abdomen/GI: Reports Constipated (7 days); Denies Abdominal Pain, Nausea, Vomiting, Diarrhea, Bloody Stools or Black Stools
: Reports Frequency and Difficulty Voiding (5 days); Denies Dysuria, Flank Pain, Incontinence, Urgency or Bleeding
Musculoskeletal: Denies Joint Pain or Edema
Skin: Denies Itching or Rash
Neurological: Reports Weakness; Denies Dizzy or Headache
Endocrine: Reports No Symptoms
Hematologic/Lymphatic: Reports No Symptoms
Psych: Reports Calm
Physical Exam
Vital Signs
Vital Signs
Temp Pulse Resp BP Pulse Ox
100.4 F H 95 28 153/72 94
07/19/24 15:05 07/19/24 16:15 07/19/24 16:15 07/19/24 16:00 07/19/24 15:15
Physical Exam
General: Conversant, Fever and Chills
HEENT: NormoCephalic, Anicteric, Moist mucous membranes, PERRLA, [place] Conjunctivae and No Ptosis
Respiratory: Clear; No Wheezes, Rales or Rhonchi
Cardiac: S1/S2 and Regular Rhythm; No Murmur, Rub, Gallop or Peripheral Edema
Breast: Deferred by me
GI: Soft, Non Tender, Non Distended, Normal Bowel Sounds and No Hepatosplenomegaly
Genito-urinary: No costovertebral tender
Musculoskeletal: No Clubbing, No Cyanosis and No Edema
Skin: Warm and Dry; No Rash or Jaundice
Neuro: AO x 3, No Motor Deficits, Nonfocal/grossly intact, Cranial Nerves Intact, No Sensory Deficits, Tremors (Bilateral hands reports chronic but unknown diagnosis) and Other (Reportedly needed to assist to bedside commode due to weakness); No
Slurred Speech, Facial Droop or Sedated
Psych: Calm
Laboratory Results
-
07/19/24 12:18
07/19/24 13:28
Laboratory Results
Total Bilirubin 0.9 mg/dl (0.2-1.3) 07/19/24 13:28
AST 22 U/L (17-59) 07/19/24 13:28
ALT 22 U/L (0-50) 07/19/24 13:28
Alkaline Phosphatase 102 U/L (38-126) 07/19/24 13:28
Impression/Plan
-
Impression/plan:
Admit to telemetry
#Sepsis 2/2 likely UTI from acute on chronic urinary retention
#Hx BPH
#Hx Urinary retention causing OLGA requiring Castle catheter April 2024
WBC 13.4 with left shift, temp 100.4 F, HR 95, 153/72
UA 80-90 WBC, many bacteria, +2 leukocyte, RBC 3-6
-No urine culture from April 2024 admission
Had Castle catheter removed approximately 2 weeks ago by visiting nurse at home
-Follows with [facility] [place] urology Dr. Victor Hugo Bejarano [phone]
Creat stable 1.2
-Will follow urine culture
-IV NSS
-IV cefepime 1 g now then 1 g every 12 hours
-Tylenol as needed fever
-Bladder scan protocol
-Follow CBC, BMP
CT abdomen pelvis: Constipation with fecal impaction
Severe bilateral hydronephrosis and hydroureter down to the level of distended trabeculated urinary bladder such may be
seen with chronic partial bladder outlet obstruction(this is a same since April 2024 CT abdomen pelvis)
Diverticuli are present in the colon with no CT evidence of diverticulitis.
Acute versus chronic interstitial airspace disease at the right lung base
Lumbar degenerative disc disease with postoperative changes
Left hip replacement
Acute versus chronic interstitial airway disease at the posterior right lung base
#Acute on chronic constipation with fecal impaction
-Patient given enema in ER with large bowel movement but still feels constipated
-Continue MiraLAX daily, mag citrate as needed, Dulcolax 10 mg per rectum as needed constipation
#Acute generalized weakness with ambulatory dysfunction 2/2 possible underlying neurological disorder such as Parkinson's versus current UTI
#Tremors to hands with shuffling gait unclear etiology
-Advised patient to follow-up with neurology to rule out Parkinson's given he also has a shuffling gait he reports to me and has fallen 4 times in the past year and a half
-PT/OT/case management eval
#Essential HTN
BP 153/72
-Continue lisinopril 20 mg twice daily monitor creatinine, continue hydralazine 10 mg 3 times daily
#April 2024 treated for RLE cellulitis secondary to cutting nails
#Chronic bilateral lower extremity edema
-Completed course of clindamycin x 10 days and 9 days Keflex was seen by podiatry
#Macrocytic anemia hx
-Hgb 12.7
#Genital herpes
-Continue acyclovir 40 mg at bedtime
#Depression/anxiety
-Continue Wellbutrin 300 mg at bedtime, doxepin 75 mg at bedtime
#Chronic ambulatory dysfunction
-PT/OT/case management consult
#Sleep apnea noncompliant with nasal CPAP states ripped off 3 to 4 years ago
#Obesity class II due to excess calorie consumption�BMI 37
Weight loss recommended, low-fat diet
DVT prophylaxis
Subcu Lovenox
Full code
[2024-07-19] MEDS: STERILE WATER FOR INJECTION 10 ML IV (19:16)
[2024-07-19] MEDS: MAXIPIME 1000 MG IV (19:16)
--- NOTE | 2024-07-19 19:42 | W.PN.UPDATE ---
Update Note
Progress Note Update
This is an addendum to the H&P written by Anna Gamboa on 07/19/2024. Patient seen and examined independently with SMUTTER.
73-year-old male past medical history of hypertension, BPH, anxiety/depression, macrocytic anemia, presenting with difficulty urinating over the past 3 to 4 days, constipation with no bowel movement for 7 days.
Patient was recently admitted in April for OLGA secondary to urinary retention treated with Castle catheter. He eventually followed up with urology as outpatient with removal of Castle catheter 2 weeks ago. He has had decreased urine output over the
past few days once again.
He presents with sepsis with fever 100.4, leukocytosis secondary to urinary tract infection as seen on UA. CT abdomen pelvis shows constipation with fecal impaction, severe bilateral hydronephrosis and hydroureter seen with chronic partial bladder
outlet obstruction, and this was present previously. There is also acute versus chronic interstitial airspace disease in the right lung base although no pulmonary symptoms.
Urinary retention seems to be secondary to constipation. IV fluids, cefepime. Check urine culture. Bladder scan protocol. Patient was given enema in the emergency room with a bowel movement and improvement in abdominal symptoms. Continue
MiraLAX, and add senna and Dulcolax.
--- NOTE | 2024-07-19 21:00 | PTCARENOTE ---
Patient transferred from ED. Patient assisted into bed. Patient AAOx3, forgetful, vss. Patient oriented to unit, call mckeon within reach, bed in lowest position, bed alarm applied. Will continue with current plan.
[2024-07-19] MEDS: WELLBUTRIN XL (24 hour extended release) 300 MG PO (21:13)
[2024-07-19] MEDS: ZESTRIL 20 MG PO (21:14)
[2024-07-19] MEDS: SINEQUAN 75 MG PO (21:14)
[2024-07-19] MEDS: APRESOLINE 10 MG PO (21:15)
[2024-07-19] MEDS: NSS 1000 IV (21:15)
[2024-07-20] VITALS (10 sets, daily range): BP systolic 107–184; BP diastolic 53–85; PULSE 85–87; O2SAT 94; BMI 35.2
[2024-07-20] MEDS: TYLENOL 1000 MG PO (01:53)
[2024-07-20 08:14] LABS: % Basophils 0.5 % (0-2); % Eosinophils 0.4 % (0-6); % Immature Granulocytes 0.8 % (0-0.5); % Lymphocytes 8.2 % (20.5-51.1); % Monocytes 13.1 % (1.7-9.3); Absolute Basophils 0.1 10^3/uL (0-0.2); Absolute Eosinophils 0.1 10^3/uL (0-0.7); Absolute Immature Granulocytes 0.1 10^3/uL (0-0.05); Absolute Lymphocytes 1.1 10^3/uL (1.2-3.4); Absolute Monocytes 1.8 10^3/uL (0.1-0.6); Absolute Neutrophils 10.5 10^3/uL (1.4-6.5); Hematocrit 34.7 % (39.0-52.0); Hemoglobin 11.5 g/dL (13.0-18.0); Mean Corp Hgb Conc. 33.1 g/dL (33.0-37.0); Mean Corpuscular Hgb 31.9 pg (27.0-31.0); Mean Corpuscular Volume 96.1 fL (80.0-94.0); Mean Platelet Volume 10.8 fL (7.4-10.4); Nucleated Red Blood Cells % 0 % (-); Platelet Count 233 10^3/uL (130-400); Red Blood Cell Count 3.61 10^6/uL (4.70-6.10); Red Cell Dist. Width 13.6 % (11.5-14.5); White Blood Cell Count 13.6 10^3/uL (4.8-10.8)
[2024-07-20] MEDS: ASPIR LOW (ENTERIC COATED) 81 MG PO (08:57)
[2024-07-20] MEDS: APRESOLINE PO (08:57)
[2024-07-20] MEDS: ZESTRIL PO (08:57)
[2024-07-20] MEDS: PROSCAR 5 MG PO (08:58)
[2024-07-20] MEDS: MAXIPIME 1000 MG IV ×2 (08:58→20:06)
[2024-07-20] MEDS: STERILE WATER FOR INJECTION 10 ML IV ×2 (08:59→20:08)
[2024-07-20] MEDS: NSS 1000 IV (08:59)
[2024-07-20 09:51] LABS: ALT (SGPT) 27 U/L (0-50); AST (SGOT) 27 U/L (17-59); Albumin 3.5 g/dl (3.5-5.0); Alkaline Phosphatase 94 U/L (38-126); Blood Urea Nitrogen 17 mg/dl (9-20); Calcium 8.8 mg/dl (8.4-10.2); Carbon Dioxide 22 mmol/L (22-30); Chloride 106 mmol/L (98-107); Estimated Creatinine Clearance 59 ml/min; Glucose 104 mg/dl (70-99); Potassium 3.8 mmol/L (3.5-5.1); Sodium 143 mmol/L (135-145); Total Bilirubin 1.1 mg/dl (0.2-1.3); Total Protein 6.3 g/dl (6.3-8.2); eGFR 52.41
--- NOTE | 2024-07-20 10:39 | W.PN.HOSP.TC ---
Today's Communication/Plan
-
IV antibiotics
Follow urine cultures
Bladder scan, may require Castle catheter
Bowel regimen
Follow creatinine
Hold lisinopril.
Urology consultation
Assessment / Plan
Assessment / Plan
Impression:
Complicated UTI
Bilateral hydronephrosis with bladder outlet obstruction.
Constipation.
Recently (2 weeks prior to presentation) removed Castle catheter.
OLGA
Deconditioning
Other conditions:
Essential hypertension GERD
Chronic microcytic anemia.
Genital herpes.
Depression/anxiety.
Chronic ambulatory dysfunction
Sleep apnea noncompliant with CPAP.
Obesity class II with BMI of 37
Plan:
Complicated UTI with acute urine tension bilateral hydronephrosis
CT abdomen pelvis: Constipation with fecal impaction
Severe bilateral hydronephrosis and hydroureter down to the level of distended trabeculated urinary bladder such may be
seen with chronic partial bladder outlet obstruction(this is a same since April 2024 CT abdomen pelvis)
Diverticuli are present in the colon with no CT evidence of diverticulitis.
Acute versus chronic interstitial airspace disease at the right lung base
Lumbar degenerative disc disease with postoperative changes
Left hip replacement
Acute versus chronic interstitial airway disease at the posterior right lung base
Febrile, although nontoxic-appearing and hemodynamically stable. Sepsis ruled out
Does have an OLGA and relative hypotension
Continue bladder scan
May require replacement of Castle catheter
Urology consultation
Empiric antibiotics/cefepime pending urine cultures
Treat constipation.
Constipation with fecal impaction. Acute on chronic.
Status post enema in ED
Continue bowel regimen
Last colonoscopy 2012
Essential hypertension
BP soft currently
With rising creatinine, hold lisinopril. Continue hydralazine.
#April 2024 treated for RLE cellulitis secondary to cutting nails
#Chronic bilateral lower extremity edema
-Completed course of clindamycin x 10 days and 9 days Keflex was seen by podiatry
#Macrocytic anemia hx
-Hgb 12.7
#Genital herpes
-Continue acyclovir 40 mg at bedtime
#Depression/anxiety
-Continue Wellbutrin 300 mg at bedtime, doxepin 75 mg at bedtime
#Chronic ambulatory dysfunction
-PT/OT/case management consult
#Sleep apnea noncompliant with nasal CPAP states ripped off 3 to 4 years ago
#Obesity class II due to excess calorie consumption�BMI 37
Weight loss recommended, low-fat diet
DVT prophylaxis
Subcu Lovenox
Full code
Anticipated Discharge: 24 - 48 hours
Subjective/Interval History
-
Date of Service: July 20, 2024
Objective Data
-
Labs:
Laboratory Results
07/20/24
07:35
WBC 13.6 H
Hgb 11.5 L
Hct 34.7 L
Plt Count 233
Sodium 143
Potassium 3.8
Chloride 106
Carbon Dioxide 22
BUN 17
Creatinine 1.4 H
Glucose 104 H
Calcium 8.8
Total Bilirubin 1.1
AST 27
ALT 27
Alkaline Phosphatase 94
Vital Signs:
Vital Signs
Temp Pulse Resp BP Pulse Ox
99.3 F 86 20 107/53 93
07/20/24 07:00 07/20/24 08:57 07/20/24 07:00 07/20/24 08:57 07/20/24 07:00
I&O
07/19/24 07/20/24 07/21/24
06:59 06:59 06:59
Intake Total 240 / 240 880 / 880
Balance 240 / 240 880 / 880
Physical Exam
-
General: No Apparent Distress
HEENT: Moist Mucous Membranes
Respiratory: Non Labored Respirations; Negative Accessory Resp Muscle Use
Cardiac: Regular Rhythm and S1/S2
GI: Soft
Genito-urinary: Clear Urine and Castle
Neuro: AO x 3
Psych: Calm
[2024-07-20] MEDS: APRESOLINE 10 MG PO ×2 (16:11→21:38)
--- NOTE | 2024-07-20 16:42 | W.PN.URO.CBU ---
Today's Communication / Plan
-
keep andrade instruct leg bag andrade cbag
Assessment / Plan
-
bph h/o creatine 4.9 with hydro in summer with 1 liter drained from bladder now uti and retention no andrade but impaction Work on bowels leave andrade in that was just placed vn consult treat uti and have pt f/up gu dr shields as
outpatient for bph
Diagnosis
-
Date of Service: July 20, 2024
-
Patient Diagnosis:rae and uti in pt with fecal impaction and bph with severe bilateral hydro andrade placed
Post Op Day:
Subjective
-
abd pain less with andrade feels sl relief
Objective
-
Vital Signs
Temp Pulse Resp BP Pulse Ox
99.4 F 100 18 143/69 96
07/20/24 15:23 07/20/24 16:11 07/20/24 15:23 07/20/24 16:11 07/20/24 15:23
Intake and Output
07/19/24 07/20/24 07/21/24
06:59 06:59 06:59
Intake Total 240 / 240 880 / 880
Balance 240 / 240 880 / 880
Intake:
Oral fluids 240 / 240
IV fluids (Total) 880 / 880
Other:
How many times incontinent 3
MODERATE amount urine
Laboratory Results
07/20/24 07:35
07/20/24 07:35
Review of Systems
-
Abdomen/GI: Abdominal Pain and Constipated
: Difficulty Voiding
Physical Exam
-
General - well developed, well nourished, no acute distress
Chest - clear bilaterally
Abdomen - soft, non-tender, positive bowel sounds, no CVAT, no incisional pain or distention
Genitalia - normal
Rectal - normal
Skin - warm & dry with no rash
Neuro - AOx3, no motor deficits
Extremities - no clubbing, no cyanosis, no edema
Incision - clean, dry
Dressing - clean, dry, intact
Care Review
Data Reviewed
Discussed with: Hospitalist and Nursing
CT Scan: Image Pers Reviewed
--- NOTE | 2024-07-20 16:45 | CM ---
evs manager reviewed patient's chart and met with patient and patient lives with spouse in a one story home, patient requires some assist with ADL's from spouse, patient has a w/c, walker in home, patient may also need Castle cath. Physical therapy
met with patient and they are recommending skilled rehab, catalytic case operator met with patient and patient is agreeable to [facility] and [facility], referrals sent to both facilities.
PCP: Dr. Malave
Pharmacy [facility].
Plan; Skilled placement, referrals sent to [facility] and [facility].
[2024-07-20] MEDS: FLOMAX 0.4 MG PO (17:29)
[2024-07-20] MEDS: LOTRISONE CREAM 1 APPLIC TOPICAL (17:29)
[2024-07-20] MEDS: LOVENOX 40 MG SC (17:29)
[2024-07-20] MEDS: TYLENOL 650 MG PO (20:36)
[2024-07-20] MEDS: WELLBUTRIN XL (24 hour extended release) 300 MG PO (21:42)
[2024-07-20] MEDS: SINEQUAN 75 MG PO (21:42)
[2024-07-21 03:02] VITALS: BP 117/63
[2024-07-21 06:00] VITALS: BMI 35.5
[2024-07-21 07:00] VITALS: BP 130/62
[2024-07-21 07:20] LABS: % Basophils 0.7 % (0-2); % Eosinophils 2.5 % (0-6); % Lymphocytes 11.3 % (20.5-51.1); % Neutrophils 71.5 % (42.2-75.2); Absolute Basophils 0.1 10^3/uL (0-0.2); Absolute Eosinophils 0.2 10^3/uL (0-0.7); Absolute Immature Granulocytes 0.1 10^3/uL (0-0.05); Absolute Lymphocytes 1.1 10^3/uL (1.2-3.4); Absolute Monocytes 1.2 10^3/uL (0.1-0.6); Absolute Neutrophils 6.7 10^3/uL (1.4-6.5); Hematocrit 33.4 % (39.0-52.0); Hemoglobin 11.1 g/dL (13.0-18.0); Mean Corp Hgb Conc. 33.2 g/dL (33.0-37.0); Mean Corpuscular Hgb 30.8 pg (27.0-31.0); Mean Corpuscular Volume 92.8 fL (80.0-94.0); Mean Platelet Volume 10.7 fL (7.4-10.4); Nucleated Red Blood Cells % 0 % (-); Platelet Count 222 10^3/uL (130-400); Red Cell Dist. Width 13.7 % (11.5-14.5); White Blood Cell Count 9.4 10^3/uL (4.8-10.8)
[2024-07-21 07:52] LABS: ALT (SGPT) 34 U/L (0-50); AST (SGOT) 35 U/L (17-59); Albumin 3.3 g/dl (3.5-5.0); Alkaline Phosphatase 98 U/L (38-126); Blood Urea Nitrogen 20 mg/dl (9-20); Calcium 8.6 mg/dl (8.4-10.2); Carbon Dioxide 21 mmol/L (22-30); Chloride 107 mmol/L (98-107); Estimated Creatinine Clearance 69 ml/min; Glucose 100 mg/dl (70-99); Sodium 143 mmol/L (135-145); Total Bilirubin 0.7 mg/dl (0.2-1.3); eGFR > 60.00
[2024-07-21] MEDS: ASPIR LOW (ENTERIC COATED) 81 MG PO (08:25)
[2024-07-21] MEDS: APRESOLINE PO (08:25)
[2024-07-21] MEDS: PROSCAR 5 MG PO (08:25)
[2024-07-21] MEDS: MAXIPIME 1000 MG IV ×2 (08:26→19:49)
[2024-07-21] MEDS: STERILE WATER FOR INJECTION 10 ML IV ×2 (08:26→19:49)
[2024-07-21 11:00] VITALS: BP 119/60
--- NOTE | 2024-07-21 11:01 | W.PN.URO.CBU ---
Today's Communication / Plan
-
home when stable with andrade
Assessment / Plan
-
bph h/o creatine 4.9 with hydro in summer with 1 liter drained from bladder now uti and retention no andrade but impaction Work on bowels leave andrade in that was just placed vn consult treat uti and have pt f/up gu dr shields as
outpatient for bph
Diagnosis
-
Date of Service: July 21, 2024
-
Patient Diagnosis:
Post Op Day:
Patient Diagnosis:rae and uti in pt with fecal impaction and bph with severe bilateral hydro andrade placed
Post Op Day:
Subjective
-
feels better
Objective
-
Vital Signs
Temp Pulse Resp BP Pulse Ox
99.4 F 57 20 130/62 93
07/21/24 07:00 07/21/24 08:25 07/21/24 07:00 07/21/24 07:00 07/21/24 07:00
Intake and Output
07/20/24 07/21/24 07/22/24
06:59 06:59 06:59
Intake Total 240 / 240 2320 / 2320
Output Total 1200 / 1200
Balance 240 / 240 1120 / 1120
Intake:
Oral fluids 240 / 240 1440 / 1440
IV fluids (Total) 880 / 880
Output:
Urine, Andrade 1200 / 1200
Other:
How many times incontinent 3
MODERATE amount urine
How many times incontinent 2
SATURATED amount urine
Laboratory Results
07/21/24 06:17
07/21/24 06:16
Review of Systems
-
Abdomen/GI: Constipated
: Difficulty Voiding
Physical Exam
-
General - well developed, well nourished, no acute distress
Chest - clear bilaterally
Abdomen - soft, non-tender, positive bowel sounds, no CVAT, no incisional pain or distention
Genitalia - normal
Rectal - normal
Skin - warm & dry with no rash
Neuro - AOx3, no motor deficits
Extremities - no clubbing, no cyanosis, no edema
Incision - clean, dry
Dressing - clean, dry, intact
Care Review
Data Reviewed
Discussed with: Nursing
CT Scan: Image Pers Reviewed
--- NOTE | 2024-07-21 11:07 | CM ---
Addendum entered by Anusha Mccloud 07/21/24 14:41:
Per admissions at [facility] there are no beds available, patient has been accepted at [facility].
Original Note:
Physical therapy are recommending skilled placement, referrals sent to [facility] and [facility], patient has been accepted at [facility], patient has [employer] insurance will need to make sure that [facility] has a contract with [facility].
Plan; skilled placement.
--- NOTE | 2024-07-21 14:31 | W.PN.HOSP.TC ---
Today's Communication/Plan
-
Maintain Castle catheter
Continue antibiotics pending final cultures and sensitivities
Plan is to discharge home with Castle catheter and urology follow-up
Assessment / Plan
Assessment / Plan
Impression:
Complicated UTI
Bilateral hydronephrosis with bladder outlet obstruction.
Constipation.
Recently (2 weeks prior to presentation) removed Castle catheter.
OLGA
Deconditioning
Other conditions:
Essential hypertension GERD
Chronic microcytic anemia.
Genital herpes.
Depression/anxiety.
Chronic ambulatory dysfunction
Sleep apnea noncompliant with CPAP.
Obesity class II with BMI of 37
Plan:
Complicated UTI with acute urine tension bilateral hydronephrosis
CT abdomen pelvis: Constipation with fecal impaction
Severe bilateral hydronephrosis and hydroureter down to the level of distended trabeculated urinary bladder such may be
seen with chronic partial bladder outlet obstruction(this is a same since April 2024 CT abdomen pelvis)
Diverticuli are present in the colon with no CT evidence of diverticulitis.
Acute versus chronic interstitial airspace disease at the right lung base
Lumbar degenerative disc disease with postoperative changes
Left hip replacement
Acute versus chronic interstitial airway disease at the posterior right lung base
Febrile, although nontoxic-appearing and hemodynamically stable. Sepsis ruled out
Does have an OLGA and relative hypotension
Castle catheter placed for recurrent retention on 07/20.
May require replacement of Castle catheter
Urology consultation appreciated
Empiric antibiotics/cefepime pending urine cultures (preliminary Proteus)
Treat constipation.
Constipation with fecal impaction. Acute on chronic.
Status post enema in ED
Continue bowel regimen
Last colonoscopy 2012
Essential hypertension
BP soft currently
With rising creatinine, hold lisinopril. Continue hydralazine.
#April 2024 treated for RLE cellulitis secondary to cutting nails
#Chronic bilateral lower extremity edema
-Completed course of clindamycin x 10 days and 9 days Keflex was seen by podiatry
#Macrocytic anemia hx
-Hgb 12.7
#Genital herpes
-Continue acyclovir 40 mg at bedtime
#Depression/anxiety
-Continue Wellbutrin 300 mg at bedtime, doxepin 75 mg at bedtime
#Chronic ambulatory dysfunction
-PT/OT/case management consult
#Sleep apnea noncompliant with nasal CPAP states ripped off 3 to 4 years ago
#Obesity class II due to excess calorie consumption�BMI 37
Weight loss recommended, low-fat diet
DVT prophylaxis
Subcu Lovenox
Full code
Anticipated Discharge: 24 - 48 hours
Subjective/Interval History
-
Date of Service: July 21, 2024
Objective Data
-
Labs:
Laboratory Results
07/21/24 07/21/24
06:16 06:17
WBC 9.4
Hgb 11.1 L
Hct 33.4 L
Plt Count 222
Sodium 143
Potassium 4.0
Chloride 107
Carbon Dioxide 21 L
BUN 20
Creatinine 1.2
Glucose 100 H
Calcium 8.6
Total Bilirubin 0.7
AST 35
ALT 34
Alkaline Phosphatase 98
Vital Signs:
Vital Signs
Temp Pulse Resp BP Pulse Ox
98.9 F 87 21 119/60 93
07/21/24 11:00 07/21/24 11:00 07/21/24 11:00 07/21/24 11:00 07/21/24 11:00
I&O
07/20/24 07/21/24 07/22/24
06:59 06:59 06:59
Intake Total 240 / 240 2320 / 2320
Output Total 1200 / 1200
Balance 240 / 240 1120 / 1120
Physical Exam
-
General: No Apparent Distress
HEENT: Moist Mucous Membranes
Respiratory: Non Labored Respirations; Negative Accessory Resp Muscle Use
Cardiac: Regular Rhythm and S1/S2
GI: Soft
Genito-urinary: Clear Urine and Castle
Neuro: AO x 3
Psych: Calm
[2024-07-21 15:00] VITALS: BP 130/61
[2024-07-21] MEDS: APRESOLINE 10 MG PO ×2 (15:29→22:15)
[2024-07-21] MEDS: FLOMAX 0.4 MG PO (17:12)
[2024-07-21] MEDS: LOVENOX 40 MG SC (17:12)
[2024-07-21] MEDS: LOTRISONE CREAM 1 APPLIC TOPICAL (17:13)
[2024-07-21 19:46] VITALS: BP 107/56
[2024-07-21] MEDS: TYLENOL 650 MG PO (20:08)
[2024-07-21] MEDS: SINEQUAN 75 MG PO (22:16)
[2024-07-21] MEDS: WELLBUTRIN XL (24 hour extended release) 300 MG PO (22:16)
[2024-07-21 22:41] VITALS: BP 118/61
[2024-07-22 03:13] VITALS: BP 110/54
[2024-07-22 06:00] VITALS: BMI 36.1
--- NOTE | 2024-07-22 06:36 | W.PN.URO.CBU ---
Today's Communication / Plan
-
continue andrade
Assessment / Plan
-
BPH
urinary retention with resultant hydro and renal insufficiency
UTI
pt stable
wbc and cr downtrending
ucx + for proteus- sent pending
plan to treat UTI
continue flomax and proscar
discharge with andrade and outpt f/u with established urologist
call with any further questions
Diagnosis
-
Date of Service: July 22, 2024
-
Patient Diagnosis:
urinary retention with hydro
STEPHANIE
UTI
Subjective
-
pt asleep
Objective
-
Vital Signs
Temp Pulse Resp BP Pulse Ox
98.0 F 76 20 110/54 94
07/22/24 03:13 07/22/24 03:13 07/22/24 03:13 07/22/24 03:13 07/22/24 03:13
Intake and Output
07/20/24 07/21/24 07/22/24
06:59 06:59 06:59
Intake Total 240 / 240 2320 / 2320 960 / 960
Output Total 1200 / 1200 1600 / 1600
Balance 240 / 240 1120 / 1120 -640 / -640
Intake:
Oral fluids 240 / 240 1440 / 1440 960 / 960
IV fluids (Total) 880 / 880
Output:
Urine, Andrade 1200 / 1200 1600 / 1600
Other:
How many times incontinent 3
MODERATE amount urine
How many times incontinent 2
SATURATED amount urine
Physical Exam
-
General -no acute distress
Abdomen - soft, non-tender
Genitalia - normal- andrade in place- urine clear
[2024-07-22 07:00] VITALS: BP 124/60
[2024-07-22 08:13] LABS: % Basophils 0.8 % (0-2); % Eosinophils 5.2 % (0-6); % Immature Granulocytes 0.8 % (0-0.5); % Lymphocytes 15.6 % (20.5-51.1); % Monocytes 12.3 % (1.7-9.3); % Neutrophils 65.3 % (42.2-75.2); Absolute Basophils 0.1 10^3/uL (0-0.2); Absolute Eosinophils 0.4 10^3/uL (0-0.7); Absolute Immature Granulocytes 0.1 10^3/uL (0-0.05); Absolute Lymphocytes 1.3 10^3/uL (1.2-3.4); Absolute Neutrophils 5.5 10^3/uL (1.4-6.5); Hematocrit 36.3 % (39.0-52.0); Hemoglobin 11.9 g/dL (13.0-18.0); Mean Corp Hgb Conc. 32.8 g/dL (33.0-37.0); Mean Corpuscular Hgb 32.5 pg (27.0-31.0); Mean Corpuscular Volume 99.2 fL (80.0-94.0); Mean Platelet Volume 10.5 fL (7.4-10.4); Nucleated Red Blood Cells % 0 % (-); Platelet Count 223 10^3/uL (130-400); Red Blood Cell Count 3.66 10^6/uL (4.70-6.10); Red Cell Dist. Width 13.6 % (11.5-14.5); White Blood Cell Count 8.4 10^3/uL (4.8-10.8)
[2024-07-22] MEDS: MAXIPIME 1000 MG IV (08:13)
[2024-07-22] MEDS: ASPIR LOW (ENTERIC COATED) 81 MG PO (08:13)
[2024-07-22] MEDS: APRESOLINE 10 MG PO ×3 (08:13→22:38)
[2024-07-22] MEDS: STERILE WATER FOR INJECTION 10 ML IV ×4 (08:14→23:36)
[2024-07-22] MEDS: PROSCAR 5 MG PO (08:14)
[2024-07-22 09:31] LABS: ALT (SGPT) 38 U/L (0-50); AST (SGOT) 38 U/L (17-59); Albumin 3.6 g/dl (3.5-5.0); Alkaline Phosphatase 97 U/L (38-126); Blood Urea Nitrogen 20 mg/dl (9-20); Calcium 8.9 mg/dl (8.4-10.2); Carbon Dioxide 23 mmol/L (22-30); Chloride 106 mmol/L (98-107); Estimated Creatinine Clearance 76 ml/min; Glucose 94 mg/dl (70-99); Potassium 4.3 mmol/L (3.5-5.1); Sodium 142 mmol/L (135-145); Total Bilirubin 0.5 mg/dl (0.2-1.3); Total Protein 6.4 g/dl (6.3-8.2); eGFR > 60.00
[2024-07-22] MEDS: ATIVAN 0.5 MG PO (10:39)
[2024-07-22] MEDS: MERREM 500 MG IV ×3 (12:08→23:36)
[2024-07-22] MEDS: FLUSH (NSS) 2 FLUSH IV ×2 (12:08→18:43)
--- NOTE | 2024-07-22 12:13 | CM ---
Addendum entered by Yamila Hartmann 07/22/24 16:13:
Patient seen, discussed auth approved for [facility] tomorrow, IMM verbally reviewed, patient provided with copy.
Addendum entered by Yamila Hartmann 07/22/24 15:48:
Auth received through [employer]- auth #[id number] 07/23-07/29, provided update to Anusha in admissions. Patient will require ambulance transport-forms placed on chart.
Plan; [facility] tomorrow, will need transport scheduled.
Original Note:
Patient seen bedside, transferred to private room. Patient agreeable to [facility], patient will need insurance auth, will need updated PT/OT. Patient will need IV antibiotics upon discharge. CM will continue to follow for all discharge
planning needs.
Plan; [facility], pending auth.
[place]
Dr. Howard: [phone]
[facility]
Report: [phone]
[2024-07-22 15:00] VITALS: BP 123/46
--- NOTE | 2024-07-22 16:07 | PN.CDI ---
Addendum entered and electronically signed by Aldo Cruz MD 07/25/24 16:05:
No clinical evidence of sepsis
Original Note:
CDI
- -
CDI:
Physician Documentation Request
Admit Date: 07/19/24 19:01
Dear Doctor Nancy,
Patient admitted with complicated UTI, OLGA.
T max 07/19 100.4 presenting heart rate 94-102 presenting respiratory rate 18-25, 07/19 WBC 13.4
Please clarify which most accurately describes the patient:
Sepsis
Systemic manifestations of infection, with 2 or more SIRS criteria which include:
Fever > 100.4 degrees F or hypothermia < 96.8 degrees F
Leukocytosis - WBC > 12,000 or leukopenia, WBC < 4,000 or > 10% bands
Tachycardia - > 90 beats per minute
Tachypnea - RR > 20 breaths per minute or PaCO2 < 32 mmHg
Source: Merck Manual 2013
Localized Infection Only, Without Systemic Illness
Other
Use of terms such as suspected, likely, concern for, or probable (associated with a specific diagnosis that is being evaluated, monitored, or treated as if it exists) are acceptable and can be coded in the inpatient setting, when documented at the
time of discharge.
Thank you,
Deb Lazo RN, BSN
CDI Specialist
tiger text
Please use your independent medical judgment in providing your response.
--- NOTE | 2024-07-22 16:07 | W.PN.HOSP.TC ---
Today's Communication/Plan
-
Changed to meropenem with plan for additional 7 days of antibiotic therapy according to sensitivities.
Discharge planning to [facility] facility.
PICC line for IV antibiotic therapy as outpatient placed.
Assessment / Plan
Assessment / Plan
Impression:
Complicated UTI
Bilateral hydronephrosis with bladder outlet obstruction.
Constipation.
Recently (2 weeks prior to presentation) removed Castle catheter.
OLGA
Deconditioning
Other conditions:
Essential hypertension GERD
Chronic microcytic anemia.
Genital herpes.
Depression/anxiety.
Chronic ambulatory dysfunction
Sleep apnea noncompliant with CPAP.
Obesity class II with BMI of 37
Plan:
Complicated UTI with acute urine tension bilateral hydronephrosis
CT abdomen pelvis: Constipation with fecal impaction
Severe bilateral hydronephrosis and hydroureter down to the level of distended trabeculated urinary bladder such may be
seen with chronic partial bladder outlet obstruction(this is a same since April 2024 CT abdomen pelvis)
Diverticuli are present in the colon with no CT evidence of diverticulitis.
Acute versus chronic interstitial airspace disease at the right lung base
Lumbar degenerative disc disease with postoperative changes
Left hip replacement
Acute versus chronic interstitial airway disease at the posterior right lung base
Febrile, although nontoxic-appearing and hemodynamically stable. Sepsis ruled out
Does have an OLGA and relative hypotension
Castle catheter placed for recurrent retention on 07/20.
Urology consultation appreciated
Urine culture positive for Proteus ESBL. Sensitivities reviewed with infectious disease service. Antibiotics transition from cefepime to meropenem on 07/22 for 7 days of treatment.
Treat constipation.
Constipation with fecal impaction. Acute on chronic.
Status post enema in ED
Continue bowel regimen
Last colonoscopy 2012
Essential hypertension
BP soft currently
With rising creatinine, hold lisinopril. Continue hydralazine.
#April 2024 treated for RLE cellulitis secondary to cutting nails
#Chronic bilateral lower extremity edema
-Completed course of clindamycin x 10 days and 9 days Keflex was seen by podiatry
#Macrocytic anemia hx
-Hgb 12.7
#Genital herpes
-Continue acyclovir 40 mg at bedtime
#Depression/anxiety
-Continue Wellbutrin 300 mg at bedtime, doxepin 75 mg at bedtime
#Chronic ambulatory dysfunction
-PT/OT/case management consult
#Sleep apnea noncompliant with nasal CPAP states ripped off 3 to 4 years ago
#Obesity class II due to excess calorie consumption�BMI 37
Weight loss recommended, low-fat diet
DVT prophylaxis
Subcu Lovenox
Full code
Anticipated Discharge: Within 24 hours
Subjective/Interval History
-
Date of Service: July 22, 2024
Objective Data
-
Labs:
Laboratory Results
07/22/24
07:54
WBC 8.4
Hgb 11.9 L
Hct 36.3 L
Plt Count 223
Sodium 142
Potassium 4.3
Chloride 106
Carbon Dioxide 23
BUN 20
Creatinine 1.1
Glucose 94
Calcium 8.9
Total Bilirubin 0.5
AST 38
ALT 38
Alkaline Phosphatase 97
Vital Signs:
Vital Signs
Temp Pulse Resp BP Pulse Ox
98 F 82 20 124/60 98
07/22/24 07:00 07/22/24 07:00 07/22/24 07:00 07/22/24 07:00 07/22/24 08:25
I&O
07/21/24 07/22/24 07/23/24
06:59 06:59 06:59
Intake Total 2320 / 2320 960 / 960
Output Total 1200 / 1200 1600 / 1600
Balance 1120 / 1120 -640 / -640
Physical Exam
-
General: No Apparent Distress
HEENT: Moist Mucous Membranes
Respiratory: Non Labored Respirations; Negative Accessory Resp Muscle Use
Cardiac: Regular Rhythm and S1/S2
GI: Soft
Genito-urinary: Clear Urine and Castle
Neuro: AO x 3
Psych: Calm
--- NOTE | 2024-07-22 16:11 | PN.CDI ---
Addendum entered and electronically signed by Aldo Cruz MD 07/25/24 16:05:
Unable to comment
Original Note:
CDI
- -
CDI:
Physician Documentation Request
Admit Date: 07/19/24 19:01
Dear Doctor Nancy,
Patient admitted with complicated UTI
Progress notes indicated pt recently had Castle catheter removed.
Please clarify if a relationship exist between these conditions:
Yes, UTI is related to/associated with/due to recent Castle.
No, UTI is not related to/associated with/due to recent Castle
Unable to determine
Use of terms such as suspected, likely, concern for, or probable (associated with a specific diagnosis that is being evaluated, monitored, or treated as if it exists) are acceptable and can be coded in the inpatient setting, when documented at the
time of discharge.
Thank you,
Deb Lazo RN, BSN
CDI Specialist
tiger text
Please use your independent medical judgment in providing your response.
--- NOTE | 2024-07-22 16:13 | W.DS.TRANS ---
DC Summary - [facility]
-
Discharge Instructions:
Discharge Diagnosis/Procedures Complicated UTI
Acute urinary retention requiring Castle catheter
Diet Low Cholesterol
Instructions:
Stand-Alone Forms:
Changes to Home Medications: Yes
Discharge Medications:
DC Medications w/original date entered in [employer]
acyclovir 400 mg tablet 400 mg PO HS Infection 02/15/24
aspirin 81 mg tablet,delayed release 81 mg PO DAILY Blood Clot Prevention/Tx 02/15/24
bupropion HCl 300 mg 24 hr tablet, extended release 300 mg PO HS Depression 02/15/24
doxepin 75 mg capsule 75 mg PO HS Sleep 02/15/24
tamsulosin 0.4 mg capsule 0.4 mg PO QPM Urinary Issue 02/15/24
bisacodyl 10 mg rectal suppository (Dulcolax (bisacodyl)) 10 mg PA DAILYPRN PRN constipation 04/27/24
clotrimazole-betamethasone 1 %-0.05 % topical cream 1 applic topical QPM Skin Issues 04/27/24
acetaminophen 325 mg tablet 650 mg (2 x 325 mg) PO Q4HPRN PRN mild pain/FALL/temp> 100.4F #0 tabs 05/02/24
finasteride 5 mg tablet 5 mg PO DAILY #0 tabs 05/02/24
hydralazine 10 mg tablet 10 mg PO TID Blood Pressure 07/19/24
lisinopril 20 mg tablet 20 mg PO BID Blood Pressure 07/19/24
magnesium citrate 300 ml PO DAILY PRN Constipation #296 mL 07/19/24
polyethylene glycol 3350 17 gram/dose oral powder (Miralax) 4 g PO DAILY #119 grams 07/19/24
lorazepam 0.5 mg tablet 0.5 mg PO DAILYPRN PRN anxiety #14 tabs 07/22/24
meropenem 500 mg intravenous solution 500 mg IV Q6H #28 ea 07/22/24
Home Medication Changes
Complete 7-day course of meropenem for Proteus ESBL UTI
Pending Results: No
[2024-07-22] MEDS: FLOMAX 0.4 MG PO (16:34)
[2024-07-22] MEDS: LOTRISONE CREAM 1 APPLIC TOPICAL (18:43)
[2024-07-22] MEDS: LOVENOX 40 MG SC (18:44)
[2024-07-22 22:28] VITALS: BP 122/65
[2024-07-22] MEDS: WELLBUTRIN XL (24 hour extended release) 300 MG PO (22:38)
[2024-07-22] MEDS: SINEQUAN 75 MG PO (22:38)
[2024-07-23 03:20] VITALS: BP 125/62
[2024-07-23] MEDS: MERREM 500 MG IV ×2 (05:22→11:40)
[2024-07-23] MEDS: STERILE WATER FOR INJECTION 10 ML IV ×2 (05:23→11:40)
[2024-07-23 06:00] VITALS: BMI 35.6
[2024-07-23 07:10] VITALS: BP 135/73
[2024-07-23] MEDS: ASPIR LOW (ENTERIC COATED) 81 MG PO (08:30)
[2024-07-23] MEDS: APRESOLINE 10 MG PO (08:30)
[2024-07-23] MEDS: PROSCAR 5 MG PO (08:31)
[2024-07-23 09:28] LABS: % Basophils 0.9 % (0-2); % Eosinophils 4.2 % (0-6); % Immature Granulocytes 0.9 % (0-0.5); % Lymphocytes 14.8 % (20.5-51.1); % Monocytes 7.7 % (1.7-9.3); % Neutrophils 71.5 % (42.2-75.2); Absolute Basophils 0.1 10^3/uL (0-0.2); Absolute Eosinophils 0.3 10^3/uL (0-0.7); Absolute Immature Granulocytes 0.1 10^3/uL (0-0.05); Absolute Lymphocytes 1.2 10^3/uL (1.2-3.4); Absolute Monocytes 0.6 10^3/uL (0.1-0.6); Absolute Neutrophils 5.9 10^3/uL (1.4-6.5); Hematocrit 35.2 % (39.0-52.0); Hemoglobin 11.6 g/dL (13.0-18.0); Mean Corpuscular Hgb 31.4 pg (27.0-31.0); Mean Corpuscular Volume 95.1 fL (80.0-94.0); Nucleated Red Blood Cells % 0 % (-); Platelet Count 230 10^3/uL (130-400); Red Cell Dist. Width 13.4 % (11.5-14.5); White Blood Cell Count 8.2 10^3/uL (4.8-10.8)
[2024-07-23 09:43] LABS: ALT (SGPT) 33 U/L (0-50); AST (SGOT) 28 U/L (17-59); Albumin 3.6 g/dl (3.5-5.0); Alkaline Phosphatase 105 U/L (38-126); Blood Urea Nitrogen 16 mg/dl (9-20); Carbon Dioxide 28 mmol/L (22-30); Chloride 104 mmol/L (98-107); Estimated Creatinine Clearance 75 ml/min; Glucose 114 mg/dl (70-99); Potassium 3.9 mmol/L (3.5-5.1); Sodium 142 mmol/L (135-145); Total Bilirubin 0.4 mg/dl (0.2-1.3); Total Protein 6.4 g/dl (6.3-8.2); eGFR > 60.00
--- NOTE | 2024-07-23 10:12 | W.PN.HOSP.TC ---
Today's Communication/Plan
-
monitor vitals
see plan
dc today to SNF on abx
Assessment / Plan
Assessment / Plan
Impression:
Complicated UTI
Bilateral hydronephrosis with bladder outlet obstruction.
Constipation.
Recently (2 weeks prior to presentation) removed Castle catheter.
OLGA
Deconditioning
Other conditions:
Essential hypertension GERD
Chronic microcytic anemia.
Genital herpes.
Depression/anxiety.
Chronic ambulatory dysfunction
Sleep apnea noncompliant with CPAP.
Obesity class II with BMI of 37
Plan:
Complicated UTI with acute urine tension bilateral hydronephrosis
CT abdomen pelvis: Constipation with fecal impaction
Severe bilateral hydronephrosis and hydroureter down to the level of distended trabeculated urinary bladder such may be
seen with chronic partial bladder outlet obstruction(this is a same since April 2024 CT abdomen pelvis)
Diverticuli are present in the colon with no CT evidence of diverticulitis.
Acute versus chronic interstitial airspace disease at the right lung base
Lumbar degenerative disc disease with postoperative changes
Left hip replacement
Acute versus chronic interstitial airway disease at the posterior right lung base
Febrile, although nontoxic-appearing and hemodynamically stable. Sepsis ruled out
Does have an OLGA and relative hypotension
Castle catheter placed for recurrent retention on 07/20.
Urology consultation appreciated
Urine culture positive for Proteus ESBL. Sensitivities reviewed with infectious disease service. Antibiotics transition from cefepime to meropenem on 07/22 for 7 days of treatment.
Treat constipation.
Constipation with fecal impaction. Acute on chronic.
Status post enema in ED
Continue bowel regimen
Last colonoscopy 2012
Essential hypertension
BP soft currently
creatinine now better, restart lisinopril on dc. Continue hydralazine.
#April 2024 treated for RLE cellulitis secondary to cutting nails
#Chronic bilateral lower extremity edema
-Completed course of clindamycin x 10 days and 9 days Keflex was seen by podiatry
#Macrocytic anemia hx
monitor
#Genital herpes
-Continue acyclovir 40 mg at bedtime
#Depression/anxiety
-Continue Wellbutrin 300 mg at bedtime, doxepin 75 mg at bedtime
#Chronic ambulatory dysfunction
-PT/OT/case management consult
#Sleep apnea noncompliant with nasal CPAP states ripped off 3 to 4 years ago
#Obesity class II due to excess calorie consumption�BMI 37
Weight loss recommended, low-fat diet
DVT prophylaxis
Subcu Lovenox
Full code
General: No Apparent Distress
HEENT: Moist Mucous Membranes
Respiratory: Non Labored Respirations; Negative Accessory Resp Muscle Use
Cardiac: Regular Rhythm and S1/S2
GI: Soft,NT
Genito-urinary: Clear Urine and Castle
Neuro: AO x 3
Psych: Calm
Anticipated Discharge: Today
Subjective/Interval History
-
Date of Service: July 23, 2024
denies pain
Objective Data
-
Labs:
Laboratory Results
07/23/24
09:20
WBC 8.2
Hgb 11.6 L
Hct 35.2 L
Plt Count 230
Sodium 142
Potassium 3.9
Chloride 104
Carbon Dioxide 28
BUN 16
Creatinine 1.1
Glucose 114 H
Calcium 9.0
Total Bilirubin 0.4
AST 28
ALT 33
Alkaline Phosphatase 105
Vital Signs:
Vital Signs
Temp Pulse Resp BP Pulse Ox
98.2 F 83 28 135/73 92
07/23/24 07:10 07/23/24 07:10 07/23/24 07:10 07/23/24 07:10 07/23/24 07:10
I&O
07/22/24 07/23/24 07/24/24
06:59 06:59 06:59
Intake Total 960 / 960 960 / 960
Output Total 1600 / 1600 3100 / 3100
Balance -640 / -640 -2140 / -2140
--- NOTE | 2024-07-23 10:48 | CM ---
Addendum entered by Dinora Roche 07/23/24 11:19:
Transport between [id number]
Pt updated bedside , he was on phone with spouse during meeting
Original Note:
CM reviewed chart and confirmed plan for dc today with Dr Dawn
CM confirmed bed at [facility] with Anusha/admissions
[employer] auth obtained day prior
IMM and transport forms completed day prior as well
Update to pt bedside
[employer] to arrange for transport
Discharge Disposition- [facility] via BLS
Phone- [phone] Fax- [phone]
[2024-07-23 13:29] VITALS: BP 132/61
== END 2024-07-23 16:44 | DRG 690 ==
LOC: 4 WEST ACU 19:01
PROVIDERS: Clinical Nurse Specialist Family Health; Emergency Medicine; Physician Assistant; ADMITTING PHYSICIAN Hospitalist; ATTENDING PHYSICIAN Internal Medicine; CONSULT PHYSICIAN Specialist; EMERGENCY PHYSICIAN Student in an Organized Health Care Education/Training Program; FAMILY PHYSICIAN Family Medicine
DX: N13.6 Pyonephrosis (principal); Z16.12 Extended spectrum beta lactamase (ESBL) resistance; N17.9 Acute kidney failure, unspecified; A60.02 Herpesviral infection of other male genital organs; E66.812 Obesity, class 2; R33.8 Other retention of urine; N40.1 Benign prostatic hyperplasia with lower urinary tract symptoms; I10 Essential (primary) hypertension; B96.4 Proteus (mirabilis) (morganii) as the cause of diseases classified elsewhere; Z68.37 Body mass index [BMI] 37.0-37.9, adult
CPT/HCPCS: 71045; 74177; 80053; 81003; 81015; 85025; 87077; 87086; 87186; 97163; 97167; 97530; 99285; Q9967

== ENCOUNTER 2024-09-16 13:30 | Emergency (ER) | payer OTHER, SELFPAY ==
[2024-09-16 13:45] VITALS: BP 146/79
--- NOTE | 2024-09-16 14:01 | ED.GENMED ---
ED Provider Triage
<Neal Romano PA-C - Last Filed: 09/16/24 14:03>
-
Patient seen by provider in Triage?: Seen in Triage
73 yo male c/o constipation, last BM 6d ago. Has been trying suppositories and prune juice without relief. Not on opiates. No abd pain. Indwelling LAKHANI still draining
No abd tenderness. Obtain XR to eval stool burden
History of Present Illness
<Neal Romano PA-C - Last Filed: 09/16/24 14:03>
General
Chief Complaint: Bowel Problem
Time Seen by Provider: 09/16/24 18:46
<Suzanne Veras PA-C - Last Filed: 09/16/24 22:12>
General
Source: patient
Exam Limitations: none
Nursing documentation reviewed up to this point in time: agreed with
History of Present Illness
History of Present Illness:
pt is a 73 y/o M with h/o chronic constipation
HTN
says he had normal BM 5 days ago
since he has been trying some remedies: senna, suppository, prune juice etc
he says his put the suppository in last night and noticed soem hard stool in his rectum
she could not disimpact him
he arrived here with pressure in his rectum
but then while waiting, started havin stool leak out and was sitting in his stool
he now is mostly complainig of burning/skin break down in his bottom and inguinal region
he has had skin breakdown like this before an was using a steroid cream
he apparently had the redness for a few days he thinks
he has never had a bowel obstruction
no fever/chills
has chronic lakhani which has put out normal uirne
Past History
<Neal Romano PA-C - Last Filed: 09/16/24 14:03>
Past History
ED Past Medical History: HTN and Psychiatric
ED Past Surgical History: Cholecystectomy and Orthopedic
Social History
Tobacco: Non-smoker
Alcohol: None
Drug: None
Personal:
Living: with family
Review of Systems
<Suzanne Veras PA-C - Last Filed: 09/16/24 22:12>
Review of Systems
Allergies reviewed?: Yes
All Other Systems: Not applicable
Phy Exam
<Suzanne Veras PA-C - Last Filed: 09/16/24 22:12>
Physical Exam
Physical Exam:
GENERAL: Alert , in no apparent distress
EYE: pupils equal and reactive
NECK: Supple
ENT: o/p clr, mmm.
CARDIAC: Regular rate and rhythm .
LUNGS: Clear breath sounds bilaterally, no acute respiratory distress, no wheezes/rales/rhonchi
ABDOMEN: soft, obese, nontender, normal bowel sounds
rectum: leaking brown liquid stool from rectum
he is severely excoriated skin around his anus/buttocks and in his folds of his inguinal region c/w intertrigo
indwelling chronic lakhani
clear uirne
NEUROLOGICAL: Alert and oriented, no focal neuro deficits
SKIN: Warm and dry, skin intact.
erythema b/l inguinal regions, buttocks;
PSYCH: Normal and appropriate interaction.
Course
<Neal Romano PA-C - Last Filed: 09/16/24 14:03>
Orders/Labs/Results
Orders:
Orders
09/16/24 14:03
CR Obstruct Series W/pa Chest Urgent
Comment:
Reason For Exam: constipation
09/16/24 20:02
Enema- Treatment ONCE
Type: Milk of Molasses
Acetaminophen [Tylenol] 650 mg PO NOW STA
09/16/24 20:32
Complete Blood Count/With Diff Urgent
Comprehensive Metabolic Panel Urgent
Abnormal Lab Results
09/16/24
20:32
WBC 15.9 H 10^3/uL
(4.8-10.8)
RBC 4.53 L 10^6/uL
(4.70-6.10)
MCV 94.3 H fL
(80.0-94.0)
MCHC 32.6 L g/dL
(33.0-37.0)
RDW 14.6 H %
(11.5-14.5)
MPV 10.9 H fL
(7.4-10.4)
Abs Immat Gran (auto) 0.2 H 10^3/uL
(0-0.05)
Absolute Neuts (auto) 12.9 H 10^3/uL
(1.4-6.5)
Absolute Monos (auto) 1.2 H 10^3/uL
(0.1-0.6)
Immature Gran % 0.9 H %
(0-0.5)
Neutrophils % 81.6 H %
(42.2-75.2)
Lymphocytes % 8.4 L %
(20.5-51.1)
Alkaline Phosphatase 136 H U/L
(38-126)
09/16/24 20:32
09/16/24 20:32
Vital Signs
Initial and Last Documented VS:
Initial Vital Signs
Temp Pulse BP Pulse Ox
36.8 C 106 146/79 95
09/16/24 13:45 09/16/24 13:45 09/16/24 13:45 09/16/24 13:45
Last Documented Vital Signs
Temp Pulse Resp BP Pulse Ox
36.9 C 96 18 132/77 100
09/16/24 16:00 09/16/24 19:11 09/16/24 19:11 09/16/24 19:11 09/16/24 19:11
<Suzanne Veras PA-C - Last Filed: 09/16/24 22:12>
Orders/Labs/Results
Orders:
Orders
09/16/24 14:03
CR Obstruct Series W/pa Chest Urgent
Comment:
Reason For Exam: constipation
09/16/24 20:02
Enema- Treatment ONCE
Type: Milk of Molasses
Acetaminophen [Tylenol] 650 mg PO NOW STA
09/16/24 20:32
Complete Blood Count/With Diff Urgent
Comprehensive Metabolic Panel Urgent
Abnormal Lab Results
09/16/24
20:32
WBC 15.9 H 10^3/uL
(4.8-10.8)
RBC 4.53 L 10^6/uL
(4.70-6.10)
MCV 94.3 H fL
(80.0-94.0)
MCHC 32.6 L g/dL
(33.0-37.0)
RDW 14.6 H %
(11.5-14.5)
MPV 10.9 H fL
(7.4-10.4)
Abs Immat Gran (auto) 0.2 H 10^3/uL
(0-0.05)
Absolute Neuts (auto) 12.9 H 10^3/uL
(1.4-6.5)
Absolute Monos (auto) 1.2 H 10^3/uL
(0.1-0.6)
Immature Gran % 0.9 H %
(0-0.5)
Neutrophils % 81.6 H %
(42.2-75.2)
Lymphocytes % 8.4 L %
(20.5-51.1)
Alkaline Phosphatase 136 H U/L
(38-126)
09/16/24 20:32
09/16/24 20:32
Vital Signs
Initial and Last Documented VS:
Initial Vital Signs
Temp Pulse BP Pulse Ox
36.8 C 106 146/79 95
09/16/24 13:45 09/16/24 13:45 09/16/24 13:45 09/16/24 13:45
Last Documented Vital Signs
Temp Pulse Resp BP Pulse Ox
36.9 C 96 18 132/77 100
09/16/24 16:00 09/16/24 19:11 09/16/24 19:11 09/16/24 19:11 09/16/24 19:11
<Suzanne Veras PA-C - Last Filed: 09/16/24 22:12>
MDM/Problems Addressed
Differential Diagnosis Includes:
constiaption, fecal impaction, stercoral colitis
MDM/Problems Addressed:
73 y/o M
h/o htn,
chronic lakhani
constipation x 5 day
history of
no abd pain but some rectal pain/pressure when he tried to go
felt stool in rectum
he has been leaking stool while waiting to be seen and has some excoriated red skin in his buttocks but then also intertrigo which is semi chronic
he puts cream on that
soft stool in rectum
brown
enema provided LARGE BM and relief
pt has leukocytosis but with resolution of symptoms and no pain, felt that it was reasonabl eto cancel ct scan and send home
i had only ordered the ct if the enema was unsuccessful
d/c home
<Suzanne Veras PA-C - Last Filed: 09/16/24 22:12>
*Critical Care Note
Total Time (30-74mins, 75-104mins- exclusive of procedures): Not Applicable
ED Attending Note
<Neal Romano PA-C - Last Filed: 09/16/24 14:03>
-
Portions of this chart may have been created with voice recognition software.� Occasional wrong word or��sound alike� substitutions may have occurred due to the inherent limitations of voice recognition software.
Discharge Plan
Departure
Patient Disposition: Home (Routine Discharge)
Date of Disposition: 09/16/24
Time of Disposition: 22:08
Patient with high blood pressure during this ER visit?: No
Condition: Fair
Covid-19: Not Applicable
Discharge Problem:
Intertrigo, Constipation
Instructions: Constipation, Adult (DC)
Prescriptions:
New
nystatin-triamcinolone 100,000-0.1 unit/gram-% ointment
1 applic topical BID 7 Days Qty: 60 0RF
No Action
doxepin 75 mg Capsule
75 mg PO HS
acyclovir 400 mg Tablet
400 mg PO HS
aspirin 81 mg Tablet,Delayed Release (Dr/Ec)
81 mg PO DAILY
tamsulosin 0.4 mg Capsule
0.4 mg PO QPM
bupropion HCl 300 mg Tablet Extended Release 24 Hr
300 mg PO HS
bisacodyl [Dulcolax (bisacodyl)] 10 mg Suppository
10 mg MN DAILYPRN PRN (Reason: constipation)
clotrimazole-betamethasone 1-0.05 % Cream
1 applic TOPICAL QPM
Rx Instructions:
APPLY TO AFFECTED AREA OF GROIN IN THE EVENING
acetaminophen 325 mg Tablet
650 mg PO Q4HPRN PRN (Reason: mild pain/FALL/temp> 100.4F) Qty: 0 0RF
finasteride 5 mg Tablet
5 mg PO DAILY Qty: 0 0RF
polyethylene glycol 3350 [Miralax] 17 gram/dose powder
4 g PO DAILY Qty: 119 0RF
magnesium citrate Solution
300 ml PO DAILY PRN (Reason: Constipation) Qty: 296 0RF
hydralazine 10 mg tablet
10 mg PO TID
lisinopril 20 mg tablet
20 mg PO BID
meropenem 500 mg Recon Soln
500 mg IV Q6H Qty: 28 0RF
lorazepam 0.5 mg Tablet
0.5 mg PO DAILYPRN PRN (Reason: anxiety) Qty: 3 0RF
Referrals:
Frank Robin MD [Family Provider] - Follow up in 2-3 days
Activity Restrictions/Additional Instructions:
TAKE A STOOL SOFTENER DAILY LIKE METAMUCIL
KEEP YOUR SKIN DRY BY APPLYING A BARRIER OINTMENT LIKE AQUAPHOR
BUT THEN IN BETWEEN YOUR GRONI WHERE IT IS REALL RED YOU SHOULD USE THE NYSTATIN/TRIAMCINOLONE OINMENT DIRECTED
WE DISCUSSED DOING A CAT SCAN BUT YOU FALL RELIEF WITH THE ENEMA
RETURN FOR: FEVER, RECTAL PAIN, VOMITING, WORSE DIARRHEA/CONISTPATION OR ANY CONCERNS.
Interventions
Interventions:
*Risk Screen - Suicide Last Done: 09/16/24 21:05
*General Assessment Last Done: 09/16/24 14:02
*Neglect/Abuse Screening Last Done: 09/16/24 21:05
MO-Qjcato-Nkmktutvgr Assessment Last Done: 09/16/24 19:10
Discharge Date and Time
Print Language: CHINESE
[2024-09-16 14:02] VITALS: BP 146/74
[2024-09-16 16:00] VITALS: BP 111/79
--- NOTE | 2024-09-16 18:59 | EDRN ---
Assumed care of pt. at change of shift. Pt. had been incontinent of large amount stool, was brought to ED RM. 35 and incontinence care complete.
[2024-09-16 19:11] VITALS: BP 132/77
[2024-09-16] MEDS: TYLENOL 650 MG PO (20:30)
[2024-09-16 20:37] LABS: % Basophils 0.6 % (0-2); % Immature Granulocytes 0.9 % (0-0.5); % Lymphocytes 8.4 % (20.5-51.1); % Monocytes 7.5 % (1.7-9.3); % Neutrophils 81.6 % (42.2-75.2); Absolute Basophils 0.1 10^3/uL (0-0.2); Absolute Eosinophils 0.2 10^3/uL (0-0.7); Absolute Immature Granulocytes 0.2 10^3/uL (0-0.05); Absolute Lymphocytes 1.3 10^3/uL (1.2-3.4); Absolute Monocytes 1.2 10^3/uL (0.1-0.6); Absolute Neutrophils 12.9 10^3/uL (1.4-6.5); Hematocrit 42.7 % (39.0-52.0); Hemoglobin 13.9 g/dL (13.0-18.0); Mean Corp Hgb Conc. 32.6 g/dL (33.0-37.0); Mean Corpuscular Hgb 30.7 pg (27.0-31.0); Mean Corpuscular Volume 94.3 fL (80.0-94.0); Mean Platelet Volume 10.9 fL (7.4-10.4); Nucleated Red Blood Cells % 0 % (-); Platelet Count 201 10^3/uL (130-400); Red Blood Cell Count 4.53 10^6/uL (4.70-6.10); Red Cell Dist. Width 14.6 % (11.5-14.5); White Blood Cell Count 15.9 10^3/uL (4.8-10.8)
[2024-09-16 20:57] LABS: ALT (SGPT) 20 U/L (0-50); AST (SGOT) 24 U/L (17-59); Albumin 4.3 g/dl (3.5-5.0); Alkaline Phosphatase 136 U/L (38-126); Blood Urea Nitrogen 13 mg/dl (9-20); Calcium 9.1 mg/dl (8.4-10.2); Carbon Dioxide 28 mmol/L (22-30); Chloride 100 mmol/L (98-107); Glucose 97 mg/dl (70-99); Potassium 4.1 mmol/L (3.5-5.1); Sodium 137 mmol/L (135-145); Total Bilirubin 1.2 mg/dl (0.2-1.3); Total Protein 7.4 g/dl (6.3-8.2); eGFR > 60.00
== END 2024-09-16 22:58 | disposition home or self-care (01) ==
LOC: EMR 13:30
PROVIDERS: Physician Assistant; EMERGENCY PHYSICIAN Emergency Medicine; FAMILY PHYSICIAN Family Medicine
DX: K59.00 Constipation, unspecified (principal); L30.4 Erythema intertrigo; I10 Essential (primary) hypertension
CPT/HCPCS: 99284; 74022; 80053; 85025

== ENCOUNTER 2024-09-21 22:00 | Emergency (ER) | payer OTHER, SELFPAY ==
[2024-09-21 22:04] VITALS: BP 184/99
[2024-09-21 22:16] LABS: Urine Albumin Trace (Neg - Trace); Urine Bilirubin Negative (Negative); Urine Character Clear (Clear); Urine Color Yellow; Urine Glucose Negative (Negative); Urine Ketone Negative (Negative); Urine Leukocyte 2+ (Negative); Urine Nitrite Positive (Negative); Urine Occult Blood 4+ (Negative); Urine Specific Gravity 1.005 (<1.030); Urine Urobilinogen Negative (Neg - 1+)
[2024-09-21 22:33] LABS: Urine Bacteria Many (Negative); Urine White Cell 26-30 /HPF (0-5)
--- NOTE | 2024-09-22 00:59 | ED.GENMED ---
History of Present Illness
General
Chief Complaint: Male Genito-Urinary Symptoms
Source: patient
Exam Limitations: none
Time Seen by Provider: 09/21/24 23:52
History of Present Illness
History of Present Illness:
This is a 73 year old male that comes in with c/o burning and pain from his andrade catheter. States that he had the catheter changed today around 4:30pm. States that the nurse comes to his home. States that he doesn't know is she didn't push it in
far enough or what but he has had discomfort. Denies any fever, chills, chest pain,SOB, abd pain, nausea, vomiting, diarrhea, headache, dizziness.
Past History
Past History
ED Past Medical History: HTN, Psychiatric (Anxiety, Depression) and Other (Sleep apnea, constipation)
ED Past Surgical History: Cholecystectomy and Orthopedic (Right knee ACL, Back surgery, Left and right knee replacement, Revision right knee X 2, Left hip replacement, Carpal tunnel)
Social History
Tobacco: Non-smoker
Alcohol: Occasional
Drug: None
Personal:
Living: with family
Review of Systems
Review of Systems
All Other Systems: ROS reviewed and negative except as documented in HPI and ROS
Constitutional: Reports no symptoms; Denies fever or chills
EENT: Reports no symptoms
Respiratory: Reports no symptoms; Denies cough or trouble breathing
Cardiac: Reports no symptoms; Denies chest pain
ABD/GI: Reports no symptoms; Denies abdominal pain, nausea, vomiting or diarrhea
: Reports other (Burning and pain of penis)
Musculoskeletal: Reports no symptoms
Skin: Reports no symptoms
Neurological: Reports no symptoms; Denies dizzy or headache
Psychiatric: Reports no symptoms
Phy Exam
General Physical Exam
General Presentation: well appearing and no apparent distress
General age: appears stated age
General Skin: warm and dry
General Habitus: elderly
General Mental: alert
General Hydration: appears well hydrated
ENT Exam
ENT Exam: TM's normal, pharynx normal and neck supple
Eye Exam
Eye Exam: EOMI
Cardiovascular Exam
Cardiovascular Exam: regular rate/rhythm and normal peripheral pulses
Pulmonary Exam
Pulmonary Exam: lungs clear, no respiratory distress, no rales, chest non tender, no crackles, no rhonchi, no wheezing and no cough
Gastrointestinal Exam
Gastrointestinal Exam: normal bowel sounds, non tender, soft, no organomegaly, no pulsatile mass and non distended
Genitourinary Exam Male
Exam Male: no evidence of trauma, no lesions and other (Andrade catheter in place)
Musculoskeletal Exam
Musculoskeletal Exam: full ROM
Skin Exam
Skin Exam: normal color, warm/dry, no rash and no petechia
Psychiatric Exam
Psychiatric Exam: normal mood/affect
Course
Orders/Labs/Results
Orders:
Orders
09/21/24 22:10
Urinalysis Reflex To Culture Urgent
Date Specimen was Collected: 09/21/24
Time Specimen was Collected: 22:08
Urine Microscopic Reflex Cult Urgent
Urine Culture Urgent
[facility] Source: U
Specimen Description:
Date Specimen was Collected: 09/21/24
Time Specimen was Collected: 22:08
09/22/24 00:59
Cephalexin Monohydrate [Keflex] 500 mg PO NOW STA
Abnormal Lab Results
09/21/24
22:10
Ur Occult Blood Reflex 4+ A
(Negative)
Urine Nitrite (Reflex) Positive A
(Negative)
Leukocyte Esterase Rfl 2+ A
(Negative)
Urine RBC 7-10 A /HPF
(0-2)
Urine WBC (Reflex) 26-30 A /HPF
(0-5)
Urine Bacteria (Reflex) Many A
(Negative)
Urine positive for infection.
Vital Signs
Initial and Last Documented VS:
Initial Vital Signs
Temp Pulse Resp BP Pulse Ox
98.1 F 101 20 184/99 95
09/21/24 22:04 09/21/24 22:04 09/21/24 22:04 09/21/24 22:04 09/21/24 22:04
Last Documented Vital Signs
Temp Pulse Resp BP Pulse Ox
98.1 F 101 20 184/99 95
09/21/24 22:04 09/21/24 22:04 09/21/24 22:04 09/21/24 22:04 09/21/24 22:04
MDM/Problems Addressed
Differential Diagnosis Includes:
Improper placement, UTI
MDM/Problems Addressed:
This is a 73 year old male that comes in with c/o burning and discomfort of the penis. States that he had the catheter changed today around 4:30pm. States that this is when he started with pain and burning.
Nursing Deflated the balloon and repositioned the catheter. Catheter is now draining and patient no longer has any discomfort. Explained that his urine looks infected to will start patient on an antibiotic for 5 days. Patient to follow up with the
Urologist. Return with fever, pain or any other concerns.
Chronic conditions affecting care:
Chronic Andrade catheter
Acute Exacerbation and/or Progression of Chronic Illness:
Chronic andrade catheter
*Pulse Oximetry
Patient hypoxic: no
*EKG
Interpreted by ED Provider?: NA
Rate: EKG- N/A
*Photo Checker And Assembler Interpretation
Rate: Photo Checker And Assembler- N/A
*Critical Care Note
Total Time (30-74mins, 75-104mins- exclusive of procedures): Not Applicable
ED Attending Note
-
Portions of this chart may have been created with voice recognition software.� Occasional wrong word or��sound alike� substitutions may have occurred due to the inherent limitations of voice recognition software.
Discharge Plan
Departure
Patient Disposition: Home (Routine Discharge)
Date of Disposition: 09/22/24
Time of Disposition: 01:07
Patient with high blood pressure during this ER visit?: Yes
Condition: Good
Covid-19: Not Applicable
Discharge Problem:
Encounter for Andrade catheter fitting and adjustment, Urinary tract infection
Instructions: How to Care for Your Andrade Catheter, Male, BLOOD PRESSURE, Urinary Tract Infection - Men
Prescriptions:
New
cephalexin 500 mg capsule
500 mg PO BID Qty: 10 0RF
No Action
doxepin 75 mg Capsule
75 mg PO HS
acyclovir 400 mg Tablet
400 mg PO HS
aspirin 81 mg Tablet,Delayed Release (Dr/Ec)
81 mg PO DAILY
tamsulosin 0.4 mg Capsule
0.4 mg PO QPM
bupropion HCl 300 mg Tablet Extended Release 24 Hr
300 mg PO HS
bisacodyl [Dulcolax (bisacodyl)] 10 mg Suppository
10 mg IA DAILYPRN PRN (Reason: constipation)
clotrimazole-betamethasone 1-0.05 % Cream
1 applic TOPICAL QPM
Rx Instructions:
APPLY TO AFFECTED AREA OF GROIN IN THE EVENING
acetaminophen 325 mg Tablet
650 mg PO Q4HPRN PRN (Reason: mild pain/FALL/temp> 100.4F) Qty: 0 0RF
finasteride 5 mg Tablet
5 mg PO DAILY Qty: 0 0RF
polyethylene glycol 3350 [Miralax] 17 gram/dose powder
4 g PO DAILY Qty: 119 0RF
magnesium citrate Solution
300 ml PO DAILY PRN (Reason: Constipation) Qty: 296 0RF
hydralazine 10 mg tablet
10 mg PO TID
lisinopril 20 mg tablet
20 mg PO BID
meropenem 500 mg Recon Soln
500 mg IV Q6H Qty: 28 0RF
lorazepam 0.5 mg Tablet
0.5 mg PO DAILYPRN PRN (Reason: anxiety) Qty: 3 0RF
nystatin-triamcinolone 100,000-0.1 unit/gram-% ointment
1 applic topical BID 7 Days Qty: 60 0RF
Referrals:
Jefferson Malave MD [Family Provider] -
Activity Restrictions/Additional Instructions:
As discussed, your catheter has been readjusted. If may just not have been all the way in the bladder. Your urine also looks infected. You have been given a Dose of antibiotic here and a prescription has been sent to your pharmacy for the next 5
days. Please increase your water intake to 8-8oz glasses daily. Follow up with the Urologist as needed. IF YOU HAVE ANY OTHER CONCERNS PLEASE RETURN TO THE EMERGENCY ROOM
Interventions
Interventions:
*Risk Screen - Suicide Last Done: 09/21/24 22:04
*General Assessment Last Done: 09/21/24 22:04
*Neglect/Abuse Screening Last Done: 09/21/24 22:04
ED-Male Genitourinary Assessment Last Done: 09/22/24 00:00
Discharge Date and Time
Print Language: SPANISH
[2024-09-22] MEDS: KEFLEX 500 MG PO (01:14)
[2024-09-22 01:24] VITALS: BP 154/85
== END 2024-09-22 01:32 | disposition home or self-care (01) ==
LOC: EMR 22:00
PROVIDERS: EMERGENCY PHYSICIAN Emergency Medicine; FAMILY PHYSICIAN Family Medicine
DX: N39.0 Urinary tract infection, site not specified (principal); Z46.6 Encounter for fitting and adjustment of urinary device; I10 Essential (primary) hypertension
CPT/HCPCS: 99283; 81003; 81015; 87086

== ENCOUNTER 2024-10-23 14:33 | Emergency (ER) | payer OTHER, SELFPAY ==
[2024-10-23] VITALS (7 sets, daily range): BP systolic 108–127; BP diastolic 58–88; BMI 36.7
--- NOTE | 2024-10-23 14:53 | ED.GENMED ---
History of Present Illness
General
Chief Complaint: Fall
Source: patient and ambulance crew
Exam Limitations: none
Time Seen by Provider: 10/23/24 14:41
Nursing documentation reviewed up to this point in time: agreed with
History of Present Illness
History of Present Illness:
74-year-old male presents from home by EMS, history of HTN, anxiety/depression, bilateral knee replacements with revision of right knee x 2, presents for a fall. He states he was walking with his walker to the bathroom, his was behind him, he
went to sit on the toilet, when asked if he simply lost his balance and fell or he was weak and fell and he states 'a little bit of both.' He denies chest pain or trouble breathing. Denies abdominal pain, N/V/D/C. His appetite has been good. He
missed the toilet and fell onto his left side. He hit the left side of his face on the counter but denies pain or swelling or change in vision. He denies neck pain or back pain. His is insistent on knee xrays although pt denies pain in knees.
Past History
Past History
ED Past Medical History: HTN, Psychiatric (Anxiety, Depression) and Other (Sleep apnea, constipation)
ED Past Surgical History: Cholecystectomy and Orthopedic (Right knee ACL, Back surgery, Left and right knee replacement, Revision right knee X 2, Left hip replacement, Carpal tunnel)
Social History
Tobacco: Non-smoker
Alcohol: Occasional
Drug: None
Personal:
Living: with family
Review of Systems
Review of Systems
Allergies reviewed?: Yes
All Other Systems: ROS reviewed and negative except as documented in HPI and ROS
Constitutional: Denies fever or fatigue
Respiratory: Denies trouble breathing
Cardiac: Denies chest pain or syncope
ABD/GI: Denies abdominal pain, nausea, vomiting, diarrhea, constipated, bloody stools, black stools or anorexia
: Denies dysuria, frequency or difficulty voiding
Musculoskeletal: Reports other (walks with walker); Denies edema, neck pain or back pain
Skin: Reports no symptoms
Neurological: Reports no symptoms; Denies headache
Phy Exam
Physical Exam
Physical Exam:
GENERAL: No acute distress. A&Ox3. Morbidly obese
CONSTITUTIONAL: Afebrile.
Head: Normocephalic/atraumatic. Left orbit area where patient states he hit when he fell is nontender, no swelling or discoloration, skin and
EYES: clear, conjunctivae normal
ENMT: moist mucus membranes, Pharynx nl
RESPIRATORY: Regular respirations, nonlabored, lungs clear.
CARDIOVASCULAR: Regular rate and rhythm, no murmurs, no rubs.
GI: Soft, nontender, normal BS
MUSCULOSKELETAL: Limited ROM of both legs due to previous knee surgeries. Knees are nontender to palpation, no redness. Well perfused. No edema
SKIN: Warm, dry, pink
PSYCH: Normal mood and affect. Well kept, interactive and appropriate
NEUROLOGIC: Awake, alert and oriented. No focal neurological deficits
Course
Orders/Labs/Results
Orders:
Orders
10/23/24 14:52
Knee, Left 4 or More Views [CR Knee - Left 4 Or More View*] Urgent
Comment:
Reason For Exam: pain after fall
Knee, Right 4 or More Views [CR Knee- Right 4 Or More View*] Urgent
Comment:
Reason For Exam: pain after fall
10/23/24 14:53
0.9% Sodium Chloride 500 ml [Nss] 500 ml IV BOLUS
10/23/24 15:08
COVID-19 Antigen Urgent
Source: Nasal Swab
Urinalysis Reflex To Culture Urgent
Date Specimen was Collected: 10/23/24
Time Specimen was Collected: 15:04
Urine Microscopic Reflex Cult Urgent
Influenza A+B Rapid Molecular Urgent
[facility] Source: Nasal Swab
Specimen Description:
Urine Culture Urgent
[facility] Source: U
Specimen Description:
Date Specimen was Collected: 10/23/24
Time Specimen was Collected: 15:04
10/23/24 15:15
Complete Blood Count/With Diff Urgent
Comprehensive Metabolic Panel Urgent
10/23/24 16:22
CefTRIAXone [Rocephin] 1,000 mg IV NOW STA
Abnormal Lab Results
10/23/24 10/23/24
15:08 15:15
WBC 11.1 H 10^3/uL
(4.8-10.8)
RBC 4.18 L 10^6/uL
(4.70-6.10)
MCH 31.3 H pg
(27.0-31.0)
RDW 14.7 H %
(11.5-14.5)
MPV 11.0 H fL
(7.4-10.4)
Abs Immat Gran (auto) 0.2 H 10^3/uL
(0-0.05)
Absolute Neuts (auto) 9.1 H 10^3/uL
(1.4-6.5)
Absolute Lymphs (auto) 0.9 L 10^3/uL
(1.2-3.4)
Absolute Monos (auto) 0.8 H 10^3/uL
(0.1-0.6)
Immature Gran % 2.0 H %
(0-0.5)
Neutrophils % 81.4 H %
(42.2-75.2)
Lymphocytes % 8.5 L %
(20.5-51.1)
BUN 29 H mg/dl
(9-20)
Glucose 101 H mg/dl
(70-99)
Calcium 8.1 L mg/dl
(8.4-10.2)
Albumin 3.4 L g/dl
(3.5-5.0)
Ur Occult Blood Reflex 2+ A
(Negative)
Urine Nitrite (Reflex) Positive A
(Negative)
Leukocyte Esterase Rfl 3+ A
(Negative)
Urine RBC 3-6 A /HPF
(0-2)
Urine WBC (Reflex) 11-15 A /HPF
(0-5)
Urine Bacteria (Reflex) Many A
(Negative)
Urine Glucose 1+ A
(Negative)
Urine Albumin (Reflex) 3+ A
(Neg - Trace)
10/23/24 15:15
10/23/24 15:15
Vital Signs
Initial and Last Documented VS:
Initial Vital Signs
Temp
98.3 F
10/23/24 14:45
Last Documented Vital Signs
Temp Pulse Resp BP Pulse Ox
99.4 F 80 26 112/58 92
10/23/24 14:51 10/23/24 16:15 10/23/24 16:15 10/23/24 16:00 10/23/24 16:15
MDM/Problems Addressed
MDM/Problems Addressed:
74-year-old male presents from home by EMS, history of HTN, anxiety/depression, bilateral knee replacements with revision of right knee x 2, presents for a fall. He states he was walking with his walker to the bathroom, his was behind him, he
went to sit on the toilet, when asked if he simply lost his balance and fell or he was weak and fell and he states 'a little bit of both.' He denies chest pain or trouble breathing. Denies abdominal pain, N/V/D/C. His appetite has been good. He
missed the toilet and fell onto his left side. He hit the left side of his face on the counter but denies pain or swelling or change in vision. He denies neck pain or back pain. His is insistent on knee xrays although pt denies pain in knees.
Afebrile, NAD
4:00 p.m.
CBC with no clinically significant abnormality
CMP: No clinically significant abnormality. BUN 29, IV fluids infusing for mild dehydration
UA: Positive nitrites, 3+ leukocytes
COVID-negative
Influenza A negative
Left knee x-ray: Radiology report read: IMPRESSION:
No acute fracture or dislocation.
Intact bilateral total knee arthroplasty hardware.
Patella armen on the right, which can be seen in the setting of a patellar tendon tear. Clinical correlation is recommended.
Right knee x-ray radiology report read: IMPRESSION:
No acute fracture or dislocation.
Intact bilateral total knee arthroplasty hardware.
Patella armen on the right, which can be seen in the setting of a patellar tendon tear. Clinical correlation is recommended.
Patient denies falling with direct impact to the knees, both knees are nontender to palpation. Doubt any acute injury.
*Critical Care Note
Total Time (30-74mins, 75-104mins- exclusive of procedures): Not Applicable
ED Attending Note
-
Portions of this chart may have been created with voice recognition software.� Occasional wrong word or��sound alike� substitutions may have occurred due to the inherent limitations of voice recognition software.
Discharge Plan
Departure
Patient Disposition: Home (Routine Discharge)
Date of Disposition: 10/23/24
Time of Disposition: 16:20
Patient with high blood pressure during this ER visit?: No
Condition: Fair
Discharge Problem:
Acute UTI
Instructions: Preventing falls in adults, Urinary tract infection in adults - ED discharge instructions
Prescriptions:
No Action
doxepin 75 mg Capsule
75 mg PO HS
acyclovir 400 mg Tablet
400 mg PO HS
aspirin 81 mg Tablet,Delayed Release (Dr/Ec)
81 mg PO DAILY
tamsulosin 0.4 mg Capsule
0.4 mg PO QPM
bupropion HCl 300 mg Tablet Extended Release 24 Hr
300 mg PO HS
bisacodyl [Dulcolax (bisacodyl)] 10 mg Suppository
10 mg MS DAILYPRN PRN (Reason: constipation)
clotrimazole-betamethasone 1-0.05 % Cream
1 applic TOPICAL QPM
Rx Instructions:
APPLY TO AFFECTED AREA OF GROIN IN THE EVENING
acetaminophen 325 mg Tablet
650 mg PO Q4HPRN PRN (Reason: mild pain/FALL/temp> 100.4F) Qty: 0 0RF
finasteride 5 mg Tablet
5 mg PO DAILY Qty: 0 0RF
polyethylene glycol 3350 [Miralax] 17 gram/dose powder
4 g PO DAILY Qty: 119 0RF
magnesium citrate Solution
300 ml PO DAILY PRN (Reason: Constipation) Qty: 296 0RF
hydralazine 10 mg tablet
10 mg PO TID
lisinopril 20 mg tablet
20 mg PO BID
meropenem 500 mg Recon Soln
500 mg IV Q6H Qty: 28 0RF
lorazepam 0.5 mg Tablet
0.5 mg PO DAILYPRN PRN (Reason: anxiety) Qty: 3 0RF
nystatin-triamcinolone 100,000-0.1 unit/gram-% ointment
1 applic topical BID 7 Days Qty: 60 0RF
cephalexin 500 mg capsule
500 mg PO BID Qty: 10 0RF
Referrals:
[facility] [Other] - Call in 1-3 days for appt
Jefferson Malave MD [Family Provider] -
Activity Restrictions/Additional Instructions:
As we discussed, you have a urinary tract infection. I sent a prescription to your pharmacy for the antibiotic cefdinir 300 mg twice a day for 7 days, started tomorrow as we gave you a dose of antibiotic intravenously here today
Call your urologist tomorrow and ask when they want to see you for follow-up.
Use your walker at all times to avoid falling
Your COVID test is negative
Your flu test is negative
Both your knee x-rays show nothing worrisome
Your blood work shows you were mildly dehydrated, you received IV fluids here today. Drink plenty of fluids
Interventions
Interventions:
*Risk Screen - Suicide Last Done: 10/23/24 14:50
*General Assessment Last Done: 10/23/24 14:51
*Neglect/Abuse Screening Last Done: 10/23/24 14:50
ED- Fall Risk Assessment Last Done: 10/23/24 15:00
*ED COVID-19 Vaccine History Last Done: 10/23/24 14:51
ED-Musculoskeletal Assessment Last Done: 10/23/24 15:00
ED- Neurological Assessment Last Done: 10/23/24 15:00
ED-Skin Assessment Last Done: 10/23/24 15:00
Discharge Date and Time
Print Language: FAROESE
[2024-10-23 15:30] LABS: % Basophils 0.5 % (0-2); % Eosinophils 0.5 % (0-6); % Lymphocytes 8.5 % (20.5-51.1); % Monocytes 7.1 % (1.7-9.3); % Neutrophils 81.4 % (42.2-75.2); Absolute Basophils 0.1 10^3/uL (0-0.2); Absolute Eosinophils 0.1 10^3/uL (0-0.7); Absolute Immature Granulocytes 0.2 10^3/uL (0-0.05); Absolute Lymphocytes 0.9 10^3/uL (1.2-3.4); Absolute Monocytes 0.8 10^3/uL (0.1-0.6); Absolute Neutrophils 9.1 10^3/uL (1.4-6.5); Hematocrit 39.3 % (39.0-52.0); Hemoglobin 13.1 g/dL (13.0-18.0); Mean Corp Hgb Conc. 33.3 g/dL (33.0-37.0); Mean Corpuscular Hgb 31.3 pg (27.0-31.0); Nucleated Red Blood Cells % 0 % (-); Platelet Count 184 10^3/uL (130-400); Red Blood Cell Count 4.18 10^6/uL (4.70-6.10); Red Cell Dist. Width 14.7 % (11.5-14.5); White Blood Cell Count 11.1 10^3/uL (4.8-10.8)
[2024-10-23 15:33] LABS: Urine Albumin 3+ (Neg - Trace); Urine Bilirubin Negative (Negative); Urine Character Slightly Cloudy (Clear); Urine Color Yellow; Urine Glucose 1+ (Negative); Urine Ketone Negative (Negative); Urine Leukocyte 3+ (Negative); Urine Nitrite Positive (Negative); Urine Occult Blood 2+ (Negative); Urine Urobilinogen 1+ (Neg - 1+)
[2024-10-23 15:42] LABS: COVID-19 Antigen Negative (Negative)
[2024-10-23 15:47] LABS: ALT (SGPT) 34 U/L (0-50); AST (SGOT) 34 U/L (17-59); Albumin 3.4 g/dl (3.5-5.0); Alkaline Phosphatase 117 U/L (38-126); Blood Urea Nitrogen 29 mg/dl (9-20); Calcium 8.1 mg/dl (8.4-10.2); Carbon Dioxide 26 mmol/L (22-30); Chloride 102 mmol/L (98-107); Estimated Creatinine Clearance 64 ml/min; Glucose 101 mg/dl (70-99); Potassium 3.5 mmol/L (3.5-5.1); Sodium 135 mmol/L (135-145); Total Bilirubin 1.3 mg/dl (0.2-1.3); Total Protein 6.5 g/dl (6.3-8.2); eGFR 56.93
--- NOTE | 2024-10-23 16:19 | EDRN ---
Miranda RUELASNP in to see pt. Pt is to be discharged home. Pt calling for a ride at this time.
[2024-10-23 16:22] LABS: Urine Squamous Cell 0-2 /LPF (Few)
[2024-10-23 16:24] LABS: Urine Bacteria Many (Negative)
[2024-10-23] MEDS: NSS 500 IV (16:27)
[2024-10-23] MEDS: ROCEPHIN 1000 MG IV (17:02)
--- NOTE | 2024-10-23 17:15 | EDRN ---
Pt incontinent of stool at this time. Pt cleansed w/ all sheets and bedclothes changed and good pericare.
--- NOTE | 2024-10-23 17:28 | EDRN ---
Acute Care scheduled to take pt home at 20:30.
--- NOTE | 2024-10-23 20:01 | EDRN ---
Pt incontinent of large amount of unformed loose stool at this time. Pt cleaned w/ good pericare, w/ sheets and diaper changed at this time.
== END 2024-10-23 20:30 | disposition home or self-care (01) ==
LOC: EMR 14:33
PROVIDERS: Registered Nurse; EMERGENCY PHYSICIAN Student in an Organized Health Care Education/Training Program; FAMILY PHYSICIAN Family Medicine
DX: N39.0 Urinary tract infection, site not specified (principal); I10 Essential (primary) hypertension; F41.8 Other specified anxiety disorders; G47.30 Sleep apnea, unspecified; Z90.49 Acquired absence of other specified parts of digestive tract; Z96.642 Presence of left artificial hip joint; Z96.653 Presence of artificial knee joint, bilateral
CPT/HCPCS: 99283; 96374; 96361; 73564; 80053; 81003; 81015; 85025; 87077; 87086; 87502; 87811